=== PATIENT | male | born 1995 | race Caucasian/White ===

== ENCOUNTER 2018-02-05 02:14 | Emergency (ER) | payer SELFPAY | END 2018-02-05 04:58 | disposition home or self-care (01) | LOC: M ED 02:14 | DX: K29.70 Gastritis, unspecified, without bleeding (principal); F17.200 Nicotine dependence, unspecified, uncomplicated | CPT/HCPCS: 99282 ==

== ENCOUNTER → 2018-04-22 | Outpatient (CLI) | payer OTHER ==
[~2018-04-22] MED LIST: ZOFR4TAB14 PO; [UNRECOGNIZED DRUG - CODE] PO
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
== END ==
LOC: M RAD 16:05
PROVIDERS: ATTEND Physician Assistant
DX: M54.2 Cervicalgia (principal)

== ENCOUNTER 2018-05-31 03:33 | Emergency (ER) | payer OTHER ==
[~2018-05-31] VITALS: Ht 172.7 cm; Wt 75.0 kg
[2018-05-31 03:33] VITALS: BP 133/65
[2018-05-31 04:29] LABS: INFLUENZA A AMPLIFICATION NEGATIVE (NEGATIVE); INFLUENZA B AMPLIFICATION NEGATIVE (NEGATIVE)
[2018-05-31] MEDS ORDERED: AUGM500T34 PO (04:55)
[2018-05-31] MEDS ORDERED: AUGMENTIN 875 MG TAB PO ONE (05:00)
== END 2018-05-31 05:04 | disposition home or self-care (01) ==
LOC: M ED 03:33
DX: H66.92 Otitis media, unspecified, left ear (principal); J02.9 Acute pharyngitis, unspecified; F17.200 Nicotine dependence, unspecified, uncomplicated

== ENCOUNTER 2019-04-04 20:31 | Emergency (ER) | payer OTHER ==
[~2019-04-04] VITALS: Ht 172.7 cm; Wt 72.7 kg
[~2019-04-04 20:31] MED LIST changes: +AUGM500T34 PO
[2019-04-04 21:18] LABS: INFLUENZA A AMPLIFICATION NEGATIVE (NEGATIVE); INFLUENZA B AMPLIFICATION POSITIVE (NEGATIVE)
[2019-04-04] MEDS ORDERED: OSELTAMIVIR PHOSPHATE 75 MG CAP (TAMIFLU) PO ONE (21:45)
[2019-04-04] MEDS ORDERED: OSEL75CA PO (21:50)
[2019-04-04] MEDS ORDERED: ONDA4TAB6 PO (21:50)
[2019-04-04 22:06] VITALS: BP 131/75
[2019-04-04] MEDS ORDERED: ACETAMINOPHEN TAB 650MG DOSE (2X325MG) PO ONE (22:30)
== END 2019-04-04 22:26 | disposition home or self-care (01) ==
LOC: M ED 20:31
DX: J10.1 Influenza due to other identified influenza virus with other respiratory manifestations (principal)

== ENCOUNTER 2019-04-08 20:11 | Emergency (ER) | payer OTHER ==
[~2019-04-08] VITALS: Ht 172.7 cm; Wt 71.8 kg
[~2019-04-08 20:11] MED LIST changes: +ONDA4TAB6 PO; +OSEL75CA PO
[2019-04-08] MEDS ORDERED: ACET-683 PO (20:32)
[2019-04-08] MEDS ORDERED: NS 1,000 ML IV ONE (20:45)
[2019-04-08] MEDS ORDERED: IBUPROFEN 800 MG TAB PO ONE (20:45)
[2019-04-08] MEDS ORDERED: ACETAMINOPHEN 500 MG TAB PO ONE (20:45)
[2019-04-08] MEDS ORDERED: PRED20TA PO (21:22)
[2019-04-08] MEDS ORDERED: MORPHINE 4 MG/ML 1ML VIAL/SYRINGE (J2270) IV ONE (21:30)
[2019-04-08] MEDS ORDERED: dexameTHASONE 20 MG/5 ML VIAL (J1100) IV ONE (21:30)
[2019-04-08] MEDS ORDERED: DEXTROMETHORPHAN 60MG/10ML SUSP 90ML BTL(DELSYM) PO PRN (21:30)
[2019-04-08] MEDS ORDERED: DEXTROMETHORPHAN 60MG/10ML SUSP 90ML BTL(DELSYM) PO ONE ×2 (21:30)
[2019-04-08 22:01] VITALS: BP 115/55
--- NOTE | 2019-04-09 10:49 | REP ---
CHEST, TWO VIEWS: There is no evidence of acute infiltrate. No pleural effusion is seen. The heart is normal in size. The mediastinal silhouette is unremarkable. The visualized osseous structures are intact. IMPRESSION: No acute pulmonary disease. Electronically Signed by Roberto Lira MD 04/09/2019 03:53 P
== END 2019-04-08 22:07 | disposition home or self-care (01) ==
LOC: M ED 20:11 → EDBD 20:11 → M ED 22:07
DX: J10.1 Influenza due to other identified influenza virus with other respiratory manifestations (principal); J40 Bronchitis, not specified as acute or chronic; F17.210 Nicotine dependence, cigarettes, uncomplicated
CPT/HCPCS: 71046; 96361; 96374; 96375; 99284; J1100; J2270

== ENCOUNTER 2019-10-04 23:12 | Emergency (ER) | payer OTHER ==
[~2019-10-04] VITALS: Ht 175.3 cm; Wt 80.0 kg
[~2019-10-04 23:12] MED LIST changes: +ACET-683 PO; +PRED20TA PO
[2019-10-04 23:34] VITALS: BP 121/83
[2019-10-05 00:33] LABS: HEMATOCRIT 48.6 % (42.0-52.0); HEMOGLOBIN 16.7 g/dl (13.5-17.5); MEAN CORPUSCULAR HEMOGLOBIN 30.5 pg (27.0-33.0); MEAN CORPUSCULAR HGB CONC 34.4 g/dl (32.0-36.5); MEAN CORPUSCULAR VOLUME 88.8 fl (80.0-96.0); RED BLOOD COUNT 5.47 10^6/uL (4.30-6.10); WHITE BLOOD COUNT 5.4 10^3/uL (4.0-10.0)
[2019-10-05 00:36] LABS: ACETAMINOPHEN LEVEL < 2.0 UG/ML (10.0-30.0); ALBUMIN 4.4 GM/DL (3.2-5.2); ALT/SGPT 22 U/L (12-78); BILIRUBIN,DIRECT 0.1 MG/DL (0.0-0.2); BILIRUBIN,TOTAL 0.3 MG/DL (0.2-1.0); BLOOD UREA NITROGEN 15 MG/DL (7-18); CALCIUM LEVEL 9.1 MG/DL (8.5-10.1); CARBON DIOXIDE LEVEL 27 MEQ/L (21-32); CHLORIDE LEVEL 105 MEQ/L (98-107); ETHYL ALCOHOL (ETHANOL) 0.077 % (0.000-0.010); GLOMERULAR FILTRATION RATE > 60.0 (>60); GLUCOSE, FASTING 88 MG/DL (70-100); POTASSIUM SERUM 3.6 MEQ/L (3.5-5.1); SALICYLATE LEVEL 3.7 MG/DL (5.0-30.0); SODIUM LEVEL 138 MEQ/L (136-145); TOTAL PROTEIN 7.8 GM/DL (6.4-8.2)
[2019-10-05 00:37] LABS: AMPHETAMINES LEVEL URINE NEGATIVE (NEGATIVE); BARBITURATES URINE NEGATIVE (NEGATIVE); BENZODIAZEPINES URINE NEGATIVE (NEGATIVE); CANNABINOIDS URINE NEGATIVE (NEGATIVE); COCAINE METABOLITE URINE NEGATIVE (NEGATIVE); METHADONE URINE NEGATIVE (NEGATIVE); OPIATES URINE NEGATIVE (NEGATIVE); PHENCYCLIDINE URINE NEGATIVE (NEGATIVE)
[2019-10-05 01:27] LABS: PLATELET COUNT, AUTOMATED 88 10^3/uL (150-450)
== END 2019-10-05 02:06 | disposition home or self-care (01) ==
LOC: M ED 23:12
DX: F43.0 Acute stress reaction (principal); F17.200 Nicotine dependence, unspecified, uncomplicated; F12.90 Cannabis use, unspecified, uncomplicated
CPT/HCPCS: 36415; 80048; 80076; 80307; 84443; 85027; 85049; 85055; 99284; G0480

== ENCOUNTER 2021-01-25 23:57 | Emergency (ER) | payer MEDICAID ==
[~2021-01-25] VITALS: Ht 175.3 cm; Wt 76.9 kg
[~2021-01-25 23:57] MED LIST changes: +DISU250T PO; +FLUO20CA22 PO; +NICO21PAT TD
[2021-01-25 23:59] VITALS: BP 137/72
--- OUTSIDE RECORDS SUMMARY | 2021-01-26 00:04 | CCD ---
Author Author [facility] Organization [facility] Address Unknown Phone Unavailable Care Team Providers Care Business Performance Specialist Name Role Phone LANCASTER, RAI PIYUSH RPA-C Unavailable Unavailable LANCASTER, RAI PIYUSH RPA-C Unavailable Unavailable LANCASTER, RAI PIYUSH RPA-C Unavailable Unavailable LANCASTER, RAI PIYUSH RPA-C Unavailable Unavailable LANCASTER, RAI PIYUSH RPA-C Unavailable Unavailable LANCASTER, RAI PIYUSH RPA-C Unavailable Unavailable LANCASTER, RAI PIYUSH RPA-C Unavailable Unavailable LANCASTER, RAI PIYUSH RPA-C Unavailable Unavailable LANCASTER, RAI PIYUSH RPA-C Unavailable Unavailable LANCASTER, RAI PIYUSH RPA-C Unavailable Unavailable LANCASTER, RAI PIYUSH RPA-C Unavailable Unavailable LANCASTER, RAI PIYUSH RPA-C Unavailable Unavailable LANCASTER, RAI PIYUSH RPA-C Unavailable Unavailable LANCASTER, RAI PIYUSH RPA-C Unavailable Unavailable LANCASTER, RAI PIYUSH RPA-C Unavailable Unavailable LANCASTER, RAI PIYUSH RPA-C Unavailable Unavailable LANCASTER, RAI PIYUSH RPA-C Unavailable Unavailable LANCASTER, RAI PIYUSH RPA-C Unavailable Unavailable LANCASTER, RAI PIYUSH RPA-C Unavailable Unavailable LANCASTER, RAI PIYUSH RPA-C Unavailable Unavailable LANCASTER, RAI PIYUSH RPA-C Unavailable Unavailable LANCASTER, RAI PIYUSH RPA-C Unavailable Unavailable LANCASTER, RAI PIYUSH RPA-C Unavailable Unavailable LANCASTER, RAI PIYUSH RPA-C Unavailable Unavailable LANCASTER, RAI PIYUSH RPA-C Unavailable Unavailable LANCASTER, RAI PIYUSH RPA-C Unavailable Unavailable LANCASTER, RAI PIYUSH RPA-C Unavailable Unavailable LANCASTER, RAI PIYUSH RPA-C Unavailable Unavailable LANCASTER, RAI PIYUSH RPA-C Unavailable Unavailable LANCASTER, RAI PIYUSH RPA-C Unavailable Unavailable LANCASTER, RAI PIYUSH RPA-C Unavailable Unavailable LANCASTER, RAI PIYUSH RPA-C Unavailable Unavailable LANCASTER, RAI PIYUSH RPA-C Unavailable Unavailable LANCASTER, RAI PIYUSH RPA-C Unavailable Unavailable LANCASTER, RAI PIYUSH RPA-C Unavailable Unavailable LANCASTER, RAI PIYUSH RPA-C Unavailable Unavailable LANCASTER, RAI PIYUSH RPA-C Unavailable Unavailable LANCASTER, RAI PIYUSH RPA-C Unavailable Unavailable LANCASTER, RAI PIYUSH RPA-C Unavailable Unavailable LANCASTER, RAI PIYUSH RPA-C Unavailable Unavailable LANCASTER, RAI PIYUSH RPA-C Unavailable Unavailable LANCASTER, RAI PIYUSH RPA-C Unavailable Unavailable LANCASTER, RAI PIYUSH RPA-C Unavailable Unavailable Caputo, Kristen Delgadillo HIDE CURER Unavailable Unavailable Caputo, R Elie HIDE CURER Unavailable Unavailable Caputo, R Elie HIDE CURER Unavailable Unavailable Gómez Cornellna Unavailable Re-disclosure Warning The records that you are about to access may contain information from federally-assisted alcohol or drug abuse programs. If such information is present, then the following federally mandated warning applies: This information has been disclosed to you from records protected by federal confidentiality rules (42 CFR part 2). The federal rules prohibit you from making any further disclosure of this information unless further disclosure is expressly permitted by the written consent of the person to whom it pertains or as otherwise permitted by 42 CFR part 2. A general authorization for the release of medical or other information is NOT sufficient for this purpose. The Federal rules restrict any use of the information to criminally investigate or prosecute any alcohol or drug abuse patient.The records that you are about to access may contain highly sensitive health information, the redisclosure of which is protected by Article 27-F of the [facility] Public Health law. If you continue you may have access to information: Regarding HIV / AIDS; Provided by facilities licensed or operated by the [facility] Office of Mental Health; or Provided by the [facility] Office for People With Developmental Disabilities. If such information is present, then the following [facility] mandated warning applies: This information has been disclosed to you from confidential records which are protected by state law. State law prohibits you from making any further disclosure of this information without the specific written consent of the person to whom it pertains, or as otherwise permitted by law. Any unauthorized further disclosure in violation of state law may result in a fine or mcfp sentence or both. A general authorization for the release of medical or other information is NOT sufficient authorization for further disc losure. Encounters Encounter Providers Location Date Indications Data Source(s ) Extended Individual Psychotherapy - 45 min Attender: Arvind Cornell [facility] 09/27/2020 07:00:00 AM EDT - 09/27/2020 07:00:00 AM EDT [facility] ([facility]) Attender: Lindsey Cornell 09/27/2020 12:00:00 AM E DT [facility] ([facility]) Long Term - Case Management Attender: Lindsey Cornell [facility] J ail 09/21/2020 12:15:00 PM EDT - 09/21/2020 12:15:00 PM EDT [facility] ([facility]) Attender: Lindsey Cornell 09/21/2020 12:00:00 AM E DT [facility] ([facility]) Attender: Lindsey Cornell 09/06/2020 12:00:00 AM E DT [facility] ([facility]) Brief Individual Psychotherapy - 30 min Attender: Lindsey maciel [facility] 09/05/2020 02:00:00 AM EDT - 09/05/2020 02:00:00 AM EDT [facility] ([facility]) [facility] 08:00:00 AM EDT - 08/29/2020 08:00:00 AM EDT [facility] ([facility]) Attender: Elie Caputo NP 08/29/2020 12:00:00 AM EDT [facility] ([facility]) Attender: Lindsey Cornell 08/21/2020 12:00:00 AM E DT [facility] ([facility]) Extended Individual Psychotherapy - 45 min Attender: Arvind reynaga [facility] 08/20/2020 01:00:00 AM EDT - 08/20/2020 01:00:00 AM EDT [facility] ([facility]) Outpatient Attender: Elie Caputo NP [facility] 07/11/2020 09:00:00 AM EDT - 07/11/2020 09:00:00 AM EDT [facility] ([facility]) Attender: Elie Caputo NP 07/11/2020 12:00:00 AM EDT [facility] ([facility]) Extended Individual Psychotherapy - 45 min Attender: Arvind reynaga [facility] 06/08/2020 09:00:00 AM EST - 06/08/2020 09:00:00 AM EST [facility] ([facility]) Attender: Lindsey Cornell 06/08/2020 12:00:[address] [facility] ([facility]) Telemed Diagnostic Eval Attender: Elie Caputo NP [facility] 05/15/2020 08:00:00 AM EST - 05/15/2020 08:00:00 AM EST [facility] ([facility]) Attender: Elie Caputo NP 05/15/2020 12:00:00 AM EST [facility] ([facility]) Extended Individual Psychotherapy - 45 min Attender: Arvind reynaga [facility] 05/11/2020 12:15:00 PM EST - 05/11/2020 12:15:00 PM EST [facility] ([facility]) Attender: Lindsey Cornell 05/11/2020 12:00:[address] [facility] ([facility]) Attender: Lindsey Cornell 04/26/2020 12:00:[address] [facility]) Brief Individual Psychotherapy - 30 min Attender: Lindsey Loaiza [facility] 04[facility]25[facility]2020 02:00:00 AM EST - 04/25/2020 02:00:00 AM EST [facility] ([facility]) Crisis Intervention - Brief Attender: Lindsey Cornell [facility] 04/06/2020 02:00:00 AM EST - 04/06/2020 02:00:00 AM EST [facility] ([facility]) Attender: Lindsey Cornell 04/06/2020 12:00:[address] [facility]) Brief Individual Psychotherapy - 30 min Attender: Lindsey maciel [facility] 04/02/2020 12:15:00 PM EST - 04/02/2020 12:15:00 PM EST [facility] ([facility]) Attender: Lindsey Cornell 04/02/2020 12:00:[address] [facility] ([facility]) Extended Individual Psychotherapy - 45 min Attender: Arvind Cornell [facility] 03/21/2020 09:15:00 AM EST - 03/21/2020 09:15:00 AM EST [facility] ([facility]) Attender: Lindsey Cornell 03/21/2020 12:00:[address] [facility]) Brief Individual Psychotherapy - 30 min Attender: Lindsey maciel [facility] 03/14/2020 02:00:00 AM EST - 03/14/2020 02:00:00 AM EST [facility] ([facility]) Attender: Lindsey Cornell 03/14/2020 12:00:[address] [facility] ([facility]) Crisis Intervention - Brief [facility]: [facility] 03/07/2020 08:30:00 AM EST - 03/07/2020 08:30:00 AM EST [facility] ([facility]) Attender: Lindsey Cornell 03/07/2020 12:00:[address] [facility]) Outpatient Attender: PIYUSH BLANCO [facility] 01/15/2020 03:23:01 PM EDT [facility] Outpatient Attender: PIYUSH BLANCO [facility] 12/30/2019 02:49:59 PM EDT [facility] Functional Status Medications Medication Brand Name Start Date Product Form Dose Route Admi nistrative Instructions Pharmacy Instructions Status Indications Reaction Description Data Source(s) Clindamycin 300 MG Oral Capsule Clindamycin HCL 09/04/2020 12:00:00 A M EDT ORAL active [facility] ([facility]) Ibuprofen 200 MG Oral Tablet Ibuprofen 200 06/18/2020 12:00:00 AM EDT ORAL completed [facility] ([facility]) Hydroxyzine Hydrochloride 50 MG Oral Tablet Hydroxyzine HCL 06/13/2020 12:00:00 AM EDT ORAL active [facility] ([facility]) Hydroxyzine Hydrochloride 50 MG Oral Tablet hydroxyzine HCl 06/13/2020 12:00:00 AM EDT 50 mg by mouth completed <td ID="MedicationRxNorm_3">203055</td><td ID="MedicationMedication_3">hydroxyzine HCl</td><td ID="MedicationRoute_3">by mouth</td><td ID="MedicationRouteConcept_3">V05908</td><td ID="MedicationStartDate_3">06/13/2020</td><td ID="MedicationStopDate_3">12/10/2020</td><td ID="MedicationDosageFrequency_3">at bedtime</td><td ID="MedicationDuration_3">30</td><td ID="MedicationFormulaStrength_3">50 mg</td><td ID="MedicationDosageForm_3">tablet</td><td ID="MedicationDosageFormCode_3"></td><td ID="MedicationDosageDescription_3"></td><td ID="MedicationMedicationId_3">[id number]</td><td ID="MedicationAccount_3">[id number]</td><td ID="MedicationNpid_3">[id number]</td><td ID="MedicationAuthorFirstName_3">Elie</td><td ID="MedicationAuthorLastName_3">Caputo</td><td ID="MedicationTaxonomyCode_3">[id number]</td><td ID="MedicationTaxonomyDesc_3">Nurse Practitioner</td><td ID="MedicationPhoneNumber_3">[phone]</td> [facility] ([facility]) Hydroxyzine Hydrochloride 50 MG Oral Tablet hydroxyzine HCl 06/13/2020 12:00:00 AM EDT 50 mg by mouth completed <td ID="MedicationRxNorm_2">937819</td><td ID="MedicationMedication_2">hydroxyzine HCl</td><td ID="MedicationRoute_2">by mouth</td><td ID="MedicationRouteConcept_2">Y93058</td><td ID="MedicationStartDate_2">06/13/2020</td><td ID="MedicationStopDate_2">12/10/2020</td><td ID="MedicationDosageFrequency_2">at bedtime</td><td ID="MedicationDuration_2">30</td><td ID="MedicationFormulaStrength_2">50 mg</td><td ID="MedicationDosageForm_2">tablet</td><td ID="MedicationDosageFormCode_2"></td><td ID="MedicationDosageDescription_2"></td><td ID="MedicationMedicationId_2">[id number]</td><td ID="MedicationAccount_2">[id number]</td><td ID="MedicationNpid_2">[id number]</td><td ID="MedicationAuthorFirstName_2">Elie</td><td ID="MedicationAuthorLastName_2">Caputo</td><td ID="MedicationTaxonomyCode_2">[id number]</td><td ID="MedicationTaxonomyDesc_2">Nurse Practitioner</td><td ID="MedicationPhoneNumber_2">[phone]</td> [facility] ([facility]) Amoxicillin 875 MG Oral Tablet Amoxicillin 06/12/2020 12:00:00 AM EDT ORAL completed [facility] ([facility]) Fluoxetine 40 MG Oral Capsule Fluoxetine HCL 05/15/2020 12:00:[address] ORAL completed [facility] ([facility]) olanzapine 5 MG Oral Tablet Olanzapine 05/15/2020 12:00:00 AM EST ORAL active [facility] ([facility]) Fluoxetine 40 MG Oral Capsule fluoxetine 05/15/2020 12:00:00 AM EST 40 mg by mouth completed <td ID="Medica tionRxNorm_1">886683</td><td ID="MedicationMedication_1">fluoxetine</td><td ID="MedicationRoute_1">by mouth</td><td ID="MedicationRouteConcept_1">W30259</td><td ID="MedicationStartDate_1">05/15/2020</td><td ID="MedicationStopDate_1">11/11/2020</td><td ID="MedicationDosageFrequency_1">every morning</td><td ID="MedicationDuration_1">30</td><td ID="MedicationFormulaStrength_1">40 mg</td><td ID="MedicationDosageForm_1">capsule</td><td ID="MedicationDosageFormCode_1"></td><td ID="MedicationDosageDescription_1"> </td><td ID="MedicationMedicationId_1">[id number]</td><td ID="MedicationAccount_1">[id number]</td><td ID="MedicationNpid_1">[id number]</td><td ID="MedicationAuthorFirstName_1">Elie</td><td ID="MedicationAuthorLastName_1">Caputo</td><td ID="MedicationTaxonomyCode_1">[id number]</td><td ID="MedicationTaxonomyDesc_1">Nurse Practitioner</td><td ID="MedicationPhoneNumber_1">[phone]</td> [facility] ([facility]) olanzapine 5 MG Oral Tablet olanzapine 05/15/2020 12:00:00 AM EST 5 mg by mouth completed <td ID="Medica tionRxNorm_2">024973</td><td ID="MedicationMedication_2">olanzapine</td><td ID="MedicationRoute_2">by mouth</td><td ID="MedicationRouteConcept_2">G54754</td><td ID="MedicationStartDate_2">05/15/2020</td><td ID="MedicationStopDate_2">11/11/2020</td><td ID="MedicationDosageFrequency_2">at bedtime</td><td ID="MedicationDuration_2">30</td><td ID="MedicationFormulaStrength_2">5 mg</td><td ID="MedicationDosageForm_2">tablet</td><td ID="MedicationDosageFormCode_2"></td><td ID="MedicationDosageDescription_2"></td><td ID="MedicationMedicationId_2">[id number]</td><td ID="MedicationAccount_2">[id number]</td><td ID="MedicationNpid_2">[id number]</td><td ID="MedicationAuthorFirstName_2">Elie</td><td ID="MedicationAuthorLastName_2">Caputo</td><td ID="MedicationTaxonomyCode_2">[id number]</td><td ID="MedicationTaxonomyDesc_2">Nurse Practitioner</td><td ID="MedicationPhoneNumber_2">[phone]</td> [facility] ([facility]) olanzapine 5 MG Oral Tablet olanzapine 05/15/2020 12:00:00 AM EST 5 mg by mouth completed <td ID="Medica tionRxNorm_1">433658</td><td ID="MedicationMedication_1">olanzapine</td><td ID="MedicationRoute_1">by mouth</td><td ID="MedicationRouteConcept_1">M77427</td><td ID="MedicationStartDate_1">05/15/2020</td><td ID="MedicationStopDate_1">11/11/2020</td><td ID="MedicationDosageFrequency_1">at bedtime</td><td ID="MedicationDuration_1">30</td><td ID="MedicationFormulaStrength_1">5 mg</td><td ID="MedicationDosageForm_1">tablet</td><td ID="MedicationDosageFormCode_1"></td><td ID="MedicationDosageDescription_1"></td><td ID="MedicationMedicationId_1">[id number]</td><td ID="MedicationAccount_1">[id number]</td><td ID="MedicationNpid_1">[id number]</td><td ID="MedicationAuthorFirstName_1">Elie</td><td ID="MedicationAuthorLastName_1">Caputo</td><td ID="MedicationTaxonomyCode_1">[id number]</td><td ID="MedicationTaxonomyDesc_1">Nurse Practitioner</td><td ID="MedicationPhoneNumber_1">[phone]</td> [facility] ([facility]) Ibuprofen 200 MG Oral Capsule Ibuprofen 05/04/2020 12:00:00 AM EST completed [facility] ([facility]) Sodium Chloride 0.111 MEQ/ML Nasal Solution Nasal Moist 04/20/2020 12:00:00 AM EST completed [facility] ([facility]) Fluoxetine 20 MG Oral Capsule Fluoxetine HCL 03/09/2020 12:00:[address] ORAL active [facility] ([facility]) 250 mg 12/31/2019 12:00:00 AM EDT tablet 30 TAKE ONE TABLET BY MOUTH EVERY DAY TAKE ONE TABLET BY MOUTH EVERY DAY SOLD: 01/01/2020 [facility] 20 mg 12/16/2019 12:00:00 AM EDT capsule 30 TAKE ONE CAPSULE BY MOUTH EVERY DAY FOR MOOD TAKE ONE CAPSULE BY MOUTH EVERY DAY FOR MOOD SOLD: 12/30/2019 [facility] 250 mg 12/06/2019 12:00:00 AM EDT tablet 30 TAKE ONE TABLET BY MOUTH EVERY DAY FOR ALCOHOL TAKE ONE TABLET BY MOUTH EVERY DAY FOR ALCOHOL SOLD: 020 [facility] 20 mg 12/06/2019 12:00:00 AM EDT capsule 7 TAKE ONE CAPSULE BY MOUTH EVERY DAY FOR MOOD TAKE ONE CAPSULE BY MOUTH EVERY DAY FOR MOOD SOLD: 12/06/2019 [facility] Insurance Providers Payer name Policy type / Coverage type Policy ID Covered democrat ID Covered democrat's relationship to mcdaniel Policy Mcdaniel Plan Information [employer] [id number] SP [id number] [facility] COMM[facility]ITY [facility]AN [facility] [id number] SP [id number] EDPR [id number] SP [id number] [facility] COMMUNITY PLAN [facility] [id number] SP [id number] [employer] [id number] SP [id number] [id number] SP [id number] [facility] COMMUNITY [facility]AN [facility] [id number] SP [id number] [facility] O [id number] S [id number] [facility] [id number] S [id number] SELF PAY ONLY [id number] SP [id number] Problems, Conditions, and Diagnoses Code Display Name Description Problem Type Effective Dates Data Source(s) F10.20 Alcohol dependence, uncomplicated Alcohol Use Disorder , Severe Condition 09/27/2020 12:00:00 AM EDT [facility] ([facility]) F43.9 Reaction to severe stress, unspecified U nspecified Trauma- and Stressor- Related Disorder Condition 09/27/2020 12:00:00 AM EDT [facility] ([facility]) F10.20 Alcohol dependence, uncomplicated Alcohol Use Di sorder, Moderate Condition 09/21/2020 12:00:00 AM EDT [facility] ([facility]) F43.9 Reaction to severe stress, unspecified U nspecified Trauma- and Stressor- Related Disorder Condition 09/21/2020 12:00:00 AM EDT [facility] ([facility]) F43.23 Adjustment disorder with mixed anxiety a nd depressed mood Adjustment Disorder, With mixed anxiety and depressed mood Condition 2020 12:00:00 AM EDT [facility] ([facility]) F31.81 Bipolar II disorder Bipolar II Disorder Condition 0 09/21/2020 12:00:00 AM EDT [facility] ([facility]) F32.9 Major depressive disorder, single episod e, unspecified Unspecified depressive Disorder Condition 05/11/2020 12:00:00 AM EST [facility] ([facility]) V15.59 Personal history of self-harm Personal history of self -harm 12/30/2019 02:48:00 PM EDT [facility] [id number] Alcohol abuse, uncomplicated Alcohol abuse, uncomplica henri 12/30/2019 02:48:00 PM EDT [facility] 300.4 Mixed anxiety and depressive disorder Mi xed anxiety and depressive disorder 12/30/2019 02:48:00 PM EDT [facility] Surgeries/Procedures Procedure Description Date Indications Data Source(s) Extended Individual Psychotherapy - 45 min 09/27/2020 12:00:00 AM EDT - 09/27/2020 12:00:00 AM EDT [facility] ([facility]) Extended Individual Psychotherapy - 45 min 12:00:00 AM EDT [facility] ([facility]) Long Term - Case Management 09/21/2020 12:00: 00 AM EDT - 09/21/2020 12:00:00 AM EDT [facility] ([facility]) Long Term - Case Management 09/21/2020 12:00:00 AM EDT [facility] ([facility]) Brief Individual Psychotherapy - 30 min 09/06/2020 12:00:00 AM EDT - 09/06/2020 12:00:00 AM EDT [facility] ([facility]) Brief Individual Psychotherapy - 30 min 09/05/2020 12: 00:00 AM EDT [facility] ([facility]) MHC Telemed E/M Lvl 3--Est pt 08/29/2020 12:00:00 AM EDT - 08/29/2020 12:00:00 AM EDT [facility] ([facility]) MHC Telemed E/M Lvl 3--Est pt 08/29/2020 12:00:00 AM E DT [facility] ([facility]) Extended Individual Psychotherapy - 45 min 08/21/2020 12:00:00 AM EDT - 08/21/2020 12:00:00 AM EDT [facility] ([facility]) Extended Individual Psychotherapy - 45 min 12:00:00 AM EDT [facility] ([facility]) MHC Telemed E/M Lvl 2--Est pt 07/11/2020 12:00:00 AM EDT - 07/11/2020 12:00:00 AM EDT [facility] ([facility]) MHC Telemed E/M Lvl 2--Est pt 07/11/2020 12:00:00 AM E DT [facility] ([facility]) Extended Individual Psychotherapy - 45 min 06/08/2020 12:00:00 AM EST - 06/08/2020 12:00:00 AM EST [facility] ([facility]) Extended Individual Psychotherapy - 45 min 12:00:00 AM EST [facility] ([facility]) Telemed Diagnostic Eval 05/15/2020 12:00 :00 AM EST - 05/15/2020 12:00:00 AM EST [facility] ([facility]) Telemed Diagnostic Eval 05/15/2020 12:00:00 AM EST [facility] ([facility]) Extended Individual Psychotherapy - 45 min 05/11/2020 12:00:00 AM EST - 05/11/2020 12:00:00 AM EST [facility] ([facility]) Extended Individual Psychotherapy - 45 min 12:00:00 AM EST [facility] ([facility]) Brief Individual Psychotherapy - 30 min 04/26/2020 12:00:00 AM EST - 04/26/2020 12:00:00 AM EST [facility] ([facility]) Brief Individual Psychotherapy - 30 min 04/25/2020 12: 00:00 AM EST [facility] ([facility]) Crisis intervention service, per 15 minutes 04/06/2020 12:00:00 AM EST - 04/06/2020 12:00:00 AM EST [facility] ([facility]) Crisis intervention service, per 15 minutes 04/06/2020 12:00:00 AM EST [facility] ([facility]) Brief Individual Psychotherapy - 30 min 04/02/2020 12:00:00 AM EST - 04/02/2020 12:00:00 AM EST [facility] ([facility]) Brief Individual Psychotherapy - 30 min 04/02/2020 12: 00:00 AM EST [facility] ([facility]) Extended Individual Psychotherapy - 45 min 03/21/2020 12:00:00 AM EST - 03/21/2020 12:00:00 AM EST [facility] ([facility]) Extended Individual Psychotherapy - 45 min 0 12:00:00 AM EST [facility] ([facility]) Brief Individual Psychotherapy - 30 min 03/14/2020 12:00:00 AM EST - 03/14/2020 12:00:00 AM EST [facility] ([facility]) Brief Individual Psychotherapy - 30 min 03/14/2020 12: 00:00 AM EST [facility] ([facility]) Crisis intervention service, per 15 minutes 03/07/2020 12:00:00 AM EST - 03/07/2020 12:00:00 AM EST [facility] ([facility]) Crisis intervention service, per 15 minutes 03/07/2020 12:00:00 AM EST [facility] ([facility]) Results ID Date Data Source [id number] 12/30/2019 02:15:52 PM EDT [facility] Measurements & CalculationsHeight: 69 inches (5 ft. 9 in.) 175.26 cm Weight: 168 pounds 76.36 kg Body Mass Index (BMI): 24.90BMI Interpretation: Healthy WeightBody Surface Area (BSA): 1.92Weight Management Education Done (Nutrition/Physical Activity)Vital SignsTemperature: 97.3F 36.28C tympanic Pulse Rate: 81 beats/minuteRespiratory Rate: 18 respirations/minuteBlood Pressure: 135/73 left arm sitting automaticO2 Saturation: 98% Vital Signs performed by: Tami Haas LPN, December 30, 2019 2:17 PMVital Signs performed by: Piyush FERNÁNDEZ, December 30, 2019 2:28 PMInitial Intake Information From: patientRoom #: 1Infectious Disease / Travel ScreeningRecent travel for you or any close contacts? NoHave you had any close contact with anyone diagnosed with or under investigation for COVID-19 (coronavirus)? NoFever? NoRespiratory symptoms: cough, cold, congestion, shortness of breath, difficulty breathing? NoLoss of smell? NoLoss of taste? NoSmoking, Tobacco, Vaping or Smoke Exposure StatusSmoke Status: current every day smokerTobacco Use: YesAdv to Quit: YesDo you vape? NoPassive Smoke Exposure: NoHealthcare HistorySince your last office visit...Have you been admitted to the hospital? NoHave you been to an emergency room (ER) or urgent care clinic? NoHave you seen another healthcare provider? NoHave you seen a dentist? NoIntake performed by: Tami Haas LPN, December 30, 2019 2:17 PMRate Your HealthIn general, would you say your health is? GoodPain AssessmentAre you currently having any pain which... You would like your provider to address? No Affects your activity level? NoDepression Screening - PHQ-2Over the last two weeks, have you... Had little interest or pleasure in doing things? Several days Been feeling down, depressed, or hopeless? Several days PHQ-2 Score: 2Anxiety Screening - GRACIE-2Over the last two weeks, have you been... Feeling nervous, anxious, or on edge? Several days Unable to stop or control worrying? Several days GRACIE-2 Score: 2Food InsecurityWithin the past year...Did you worry whether your food would run out before you got money to buy more? Never trueWas there a time when the food you bought didn't last and you didn't have money to get more? Never trueGeneralized Anxiety Disorder 7-Item Screening (GRACIE-7)Answer Guide:0 = Not at all1 = Several days2 = Over half the days3 = Nearly every dayOver the last 2 weeks, how often have you been bothered by the following problems?Feeling nervous, anxious, or on edge: 1Not being able to stop or control worryinWorrying too much about different things: 1Trouble relaxinBeing so restless that it's hard to sit still: 1Becoming easily annoyed or irritable: 1Feeling afraid as if something awful might happen: 1Answer Guide:0 = Not difficult at all1 = Somewhat difficult2 = Very difficult3 = Extremely difficultHow difficult have these made it for you to do your work, take care of things at home, or get along with other people? 1GAD-7 Screening Results GRACIE-2 Score: 2GAD-7 Score: 7Functional Impairment: Somewhat difficultRecommendation: Mild anxietyPHQ-9 1. Over the last 2 weeks, patient reports the following frequency of symptoms: a. Little interest or pleasure in doing things -Several days b. Feeling down, depressed, or hopeless -Several days c. Trouble falling asleep, staying asleep, or sleeping too much -Several days d. Feeling tired or having little energy - Several days e. Poor appetite or overeating -Several days f. Feeling bad about yourself, feeling that you are a failure, or feeling that you have let yourself or your family down -Several days g. Trouble concentrating on things such as reading the newspaper or watching television -Several days h. Moving or speaking so slowly that other people could have noticed. Or being so fidgety or restless that you have been moving around a lot more than usual -Several days i. Thinking that you would be better off or that you want to hurt yourself in some way -Not at all2. If you checked off any problems, how difficult have these problems made it for you to do your work, take care of things at home, or get along with other people? - Somewhat DifficultToday's PHQ-9 Results Score: 8 Severity: Mild Diagnosis Recommendation: No recommendation Functional Impairment: Somewhat DifficultToday's Follow-Up Action Depression follow-up done. Follow-Up Action: Continue To Take Medications as PrescribedScreening, Brief Intervention, & Referral to Treatment (SBIRT)Pre-Screening Questions How many times have you have 5 or more drinks in a day? 0How many times have you used an illegal drug or used a prescription medication for a non-medical reason? 0Performed by: Tami Haas LPN, December 30, 2019 2:18 PMPatient History Medical History:No known medical historySurgical History:No known surgical historyFamily History:No known family historySocial/Personal History: Advised to Quit/Tobacco Education: YesChief Complainthospital d/cHistory of Present Illness (HPI)Pt is a 24 y/o male, presents for new patient [facility] hospital discharge.Pt had a very stressful night of communication with his ex ( with his ex x 2-3 months and limited interaction with his son). Has court date for paternity case on 01/10/2020. Pt reports cutting himself on his left arm while intoxicated, denies suicidal attempt but describes it as a call for attention. Was admitted to [facility] x 3 days, was started on Prozac and Antabuse. Pt states he is already established with [facility] previously for mental health counseling and alcohol abuse, has been with them for nearly 1 year. Hx of rehab for alcohol in . Next [facility] appt is Thursday at 8:30 with his counseling. States he ran out of Prozac 1 week ago, reports it was "very much" helpful while he was taking it. Has 4-5 pills left of Naltrexone. [place] P[place]. Had a Tdap while in the ER, had asmita to the laceration and have them removed by [facility] 7-10 days after the placement. HPI performed by: Piyush FERNÁNDEZ, December 30, 2019 2:34 PMProblem ReviewProblem List was reviewed and/or updated during this visit.Medication Reconciliation & ReviewMedication List was reviewed and/or updated during this visit, including review of any [id number] medications, herbal therapies, and/or supplements.Allergy Re viewAllergy List was reviewed and/or updated during this visit. Patient has no known allergies.Adult Preventive CareScreening Tobacco Screening: Smoking Status: current every day smoker (12/30/2019) Tobacco Use: Currently (12/30/2019) Advised to Quit: Yes (12/30/2019)Labs/Meds/Other Counseling- Nutrition and Physical Activity:BMI Interpretation: Healthy Weight (12/30/2019) Counseling: Done (12/30/2019) Physical Activity: Done (12/30/2019)Review of Systems General: Denies loss of appetite, chills, dizziness, fatigue, fever, headache, feeling ill. Cardiovascular: Denies chest pain, palpitations, feeling faint, peripheral edema, elevated blood pressure. Respiratory: Denies cough, difficulty breathing, shortness of breath, wheezing. Gastrointestinal: Denies nausea, vomiting, diarrhea, pain or discomfort. Neurologic: Denies weakness, numbness/tingling, seizures, feeling faint. Psychiatric: Complains of see HPI, depression, anxiety, feeling stressed. Denies suicidal ideation. Physical ExamGeneral Appearance: well nourished, well hydrated, no acute distressEyes, External: conjunctivae and lids normal, EOMIRespiratory, Auscultation: clear to auscultation bilaterally; no rales, rhonchi, or wheezesCardiovascular, Auscultation: S1, S2 audible; no murmur, rub, or gallop; RRRPeripheral Circulation: no clubbing, cyanosis, edema, or varicositiesAbdomen: soft, non- tender, no masses, bowel sounds normalGait & Station: normalSkin, Inspection: healed self harm on wristOrientation: oriented to time, place, and personMood & Affect: slightly flat affect and mildly anxious appearingJudgment & Insight: intactRate Your HealthIn general, would you say your health is? GoodAssessment & Plan Problems:Added: Mixed anxiety and depressive disorder (ICD-300.4) (ICD10- F41.8) Assessment: Instructions: Continue current Prozac and Antabuse daily. Continue with your counselor at [facility], recommend you establish with a prescriber with [facility] as well. ER for suicidal thoughts or thoughts of self harm.Personal history of self-harm (ICD-V15.59) (DSL56-P28.5) Assessment: Instructions: As above.Alcohol abuse, uncomplicated (OYA61-E10.10) Assessment: Instructions: As above. Avoid all alcohol use.Patient Instructions/Care Plan: Mixed anxiety and depressive disorder: Continue current Prozac and Antabuse daily. Continue with your counselor at [facility], recommend you establish with a prescriber with [facility] as well. ER for suicidal thoughts or thoughts of self harm.Personal history of self-harm: As above.Alcohol abuse- uncomplicated: As above. Avoid all alcohol use. Plan developed in collaboration with patient and/or familyMedications:DISULFIRAM 250 MG ORAL TABLETPROZAC 20 MG ORAL CAPSULEMedication Changes:Added: PROZAC 10 MG ORAL CAPSULERefilled:PROZAC 20 MG ORAL CAPSULE-Take 1 capsule po daily Qty: 30[Capsule] Refills: 1 Method: ElectronicNew Prescription:DISULFIRAM 250 MG ORAL TABLET-Take 1 tablet po daily Qty: 30[Tablet] Refills: 1 Method: ElectronicChanged:From: ORAL PROZAC 10 MG ORAL CAPSULE Qty: [id number] Refills: 30[Capsule] To: PROZAC 20 MG ORAL CAPSULE-Take 1 capsule po daily Qty: 30[Capsule] Refills: 1Allergies:No Known Allergies (updated 12/30/2019) Orders:Adult - Ofc Vst, NEW, Level III [CPT- 30409] Follow-Up Return to clinic: in 4 weeks for preventive care visitAdditional Follow-Up: annual PEClinical Visit Summary Completed Name Value Range Interpretation Code Description Data Maureen rce(s) Supporting Document(s) Procedure Social History Code Duration Value Status Description Data Source(s ) Smoking 09/27/2020 12:00:00 AM EDT Unknown if ever smoked comp leted Unknown if ever smoked [facility] ([facility]) Smoking 09/21/2020 12:00:00 AM EDT Unknown if ever smoked comp leted Unknown if ever smoked [facility] ([facility]) Smoking 09/06/2020 12:00:00 AM EDT Unknown if ever smoked comp leted Unknown if ever smoked [facility] ([facility]) Smoking 08/29/2020 12:00:00 AM EDT Unknown if ever smoked comp leted Unknown if ever smoked [facility] ([facility]) Smoking 08/21/2020 12:00:00 AM EDT Unknown if ever smoked comp leted Unknown if ever smoked [facility] ([facility]) Smoking 07/11/2020 12:00:00 AM EDT Unknown if ever smoked comp leted Unknown if ever smoked [facility] ([facility]) Smoking 06/08/2020 12:00:00 AM EST Unknown if ever smoked comp leted Unknown if ever smoked [facility] ([facility]) Smoking 05/15/2020 12:00:00 AM EST Unknown if ever smoked comp leted Unknown if ever smoked [facility] ([facility]) Smoking 05/11/2020 12:00:00 AM EST Unknown if ever smoked comp leted Unknown if ever smoked [facility] ([facility]) Smoking 04/26/2020 12:00:00 AM EST Unknown if ever smoked comp leted Unknown if ever smoked [facility] ([facility]) Smoking 04/06/2020 12:00:00 AM EST Unknown if ever smoked comp leted Unknown if ever smoked [facility] ([facility]) Smoking 04/02/2020 12:00:00 AM EST Unknown if ever smoked comp leted Unknown if ever smoked [facility] ([facility]) Smoking 03/21/2020 12:00:00 AM EST Unknown if ever smoked comp leted Unknown if ever smoked [facility] ([facility]) Smoking 03/14/2020 12:00:00 AM EST Unknown if ever smoked comp leted Unknown if ever smoked [facility] ([facility]) Smoking 03/07/2020 12:00:00 AM EST Unknown if ever smoked comp leted Unknown if ever smoked [facility] ([facility]) Vital Signs ID Date Data Source UNK Name Value Range Interpretation Code Description Data Source(s) Body height 0.00 in Normal (applies to non-numeric resu lts) 0.00 in [facility] ([facility]) Body weight Measured 0.00 lbs Normal (applies to n on-numeric results) 0.00 lbs [facility] ([facility]) Body mass index (BMI) [Ratio] 0.00 kg/m2 No rmal (applies to non-numeric results) 0.00 kg/m2 [facility] ([facility]) Systolic blood pressure 0 mm[Hg] Normal (applies t o non-numeric results) 0 mm[Hg] [facility] ([facility]) Diastolic blood pressure 0 mm[Hg] Normal (applies to non-numeric results) 0 mm[Hg] [facility] ([facility]) Body height 0.00 in Normal (applies to non-numeric resu lts) [facility] Body weight Measured 0.00 lbs Normal (applies to n on-numeric results) 0.00 lbs [facility] ([facility]) Body mass index (BMI) [Ratio] 0.00 kg/m2 No rmal (applies to non-numeric results) 0.00 kg/m2 [facility] ([facility]) Systolic blood pressure 0 mm[Hg] Normal (applies t o non-numeric results) 0 mm[Hg] [facility] ([facility]) Diastolic blood pressure 0 mm[Hg] Normal (applies to non-numeric results) 0 mm[Hg] [facility] Body height 0.00 in Normal (applies to non-numeric resu lts) 0.00 in [facility] ([facility]) Body weight Measured 0.00 lbs Normal (applies to n on-numeric results) 0.00 lbs [facility] ([facility]) Body mass index (BMI) [Ratio] 0.00 kg/m2 No rmal (applies to non-numeric results) 0.00 kg/m2 [facility] ([facility]) Systolic blood pressure 0 mm[Hg] Normal (applies t o non-numeric results) 0 mm[Hg] [facility] ([facility]) Diastolic blood pressure 0 mm[Hg] Normal (applies to non-numeric results) 0 mm[Hg] [facility] Systolic blood pressure 131 mm[Hg] 131 mm[Hg] M [facility] ([facility]) Diastolic blood pressure 73 mm[Hg] 73 mm[Hg] [facility] ([facility]) [facility] 83 /min 83 /[facility] Respiratory rate 18 /min 18 /[facility] Body temperature 98.1 [degF] 98.1 [degF] YESSICA ([facility]) Body weight 159.00 [lb_av] 159.00 [lb_av] JEANETH Bergman ([facility])
--- OUTSIDE RECORDS SUMMARY | 2021-01-26 04:20 | CCD ---
Author Author [facility] Organization [facility] Address Unknown Phone Unavailable Care Team Providers Care Color Tester Name Role Phone LANCASTER, RAI PIYUSH RPA-C [...] LANCASTER, RAI PIYUSH RPA-C Unavailable Unavailable LANCASTER, RIA PIYUSH RPA-C Unavailable Unavailable LANCASTER, RAI PIYUSH [...] LANCASTER, RAI PIYUSH RPA-C Unavailable Unavailable Caputo, R Elie [employer] Unavailable Unavailable Caputo, R Elie [employer] Unavailable Unavailable Caputo, R Elie [employer] Unavailable Unavailable Lindsey Cornell Unavailable Re-disclosure Warning The records that you [...] is protected by Article 27-F of the [facility] Public Health law. If you continue you may have access to information: Regarding HIV / AIDS; Provided by facilities licensed or operated by the [facility] Office of Mental Health; or Provided by the [facility] Office for People With Developmental Disabilities. If such information is present, then the following [facility] mandated warning applies: This information has been [...] law may result in a fine or long-term sentence or both. A general authorization for the release of medical or other information is NOT sufficient authorization for further disc losure. Encounters Encounter Providers Location Date Indications Data Source(s ) Extended Individual Psychotherapy - 45 min Attender: Arvind Cornell [facility] 09/27/2020 07:00:00 AM EDT - 09/27/2020 07:00:00 AM EDT [facility] ([facility]) Attender: Lindsey Cornell 09/27/2020 12:00:00 AM E DT [facility] ([facility]) Long-Term - Case Management Attender: Lindsey Cornell [facility] ail 09/21/2020 12:15:00 PM EDT - 09/21/2020 12:15:00 PM EDT [facility] ([facility]) Attender: Lindsey Cornell 09/21/2020 12:00:00 AM E DT [facility] ([facility]) Attender: Lindsey Cornell 09/06/2020 12:00:00 AM E DT [facility] ([facility]) Brief Individual Psychotherapy - 30 min Attender: Lindsey maciel [facility] 09/05/2020 02:00:00 AM EDT - 09/05/2020 02:00:00 AM EDT [facility] ([facility]) Outpatient Attender: Elie Caputo NP [facility] 08/29/2020 08:00:00 AM EDT - 08/29/2020 08:00:00 AM EDT [facility] ([facility]) Attender: Elie Caputo NP 08/29/2020 12:00:00 AM EDT [facility] ([facility]) Attender: Lindsey Cornell 08/21/2020 12:00:00 AM E DT [facility] ([facility]) Extended Individual Psychotherapy - 45 min Att[facility] 08[facility]20/[facility] 01:00:00 AM EDT - 08/20/2020 01:00:00 AM EDT [facility] ([facility]) Outpatient Attender: Elie Caputo NP [facility] 07/11/2020 09:00:00 AM EDT - 07/11/2020 09:00:00 AM EDT [facility] ([facility]) Attender: Elie Caputo NP 07/11/2020 12:00:00 AM EDT [facility] ([facility]) Extended Individual Psychotherapy - 45 min Attender: Arvind Cornell [facility] 06/08/2020 09:00:00 AM EST - 06/08/2020 09:00:00 AM EST [facility] ([facility]) Attender: Lindsey Cornell 06/08/2020 12:00:[address] [facility] ([facility]) Telemed Diagnostic Eval Attender: Elie Caputo NP [facility] 05/15/2020 08:00:00 AM EST - 05/15/2020 08:00:00 AM EST [facility] ([facility]) Attender: Elie Caupto NP 05/15/2020 12:00:00 AM EST [facility] ([facility]) Extended Individual Psychotherapy - 45 min Attender: Arvind Cornell [facility] 05/11/2020 12:15:00 PM EST - 05/11/2020 12:15:00 PM EST [facility] ([facility]) Attender: Lindsey Cornell 05/11/2020 12:00:[address] [facility] ([facility]) Attender: Lindsey Cornell 04/26/2020 12:00:[address] [facility] ([facility]) Brief Individual Psychotherapy - 30 min Att[facility]: [facility]iel [facility] 04/25/2020 02:00:00 AM EST - 04/25/2020 02:00:00 AM EST [facility] ([facility]) Crisis Intervention - Brief Attender: Lindsey Cornell [place] 04/06/2020 02:00:00 AM EST - 04/06/2020 02:00:00 AM EST [facility] ([facility]) Attender: Lindsey Cornell 04/06/2020 12:00:[address] [facility] ([facility]) Brief Individual Psychotherapy - 30 min Attender: Lindsey maciel [facility] 04/02/2020 12:15:00 PM EST - 04/02/2020 12:15:00 PM EST [facility] ([facility]) Attender: Lindsey Cornell 04/02/2020 12:00:[address] [facility] ([facility]) Extended Individual Psychotherapy - 45 min Attender: Arvind Cornell [facility] 03/21/2020 09:15:00 AM EST - 03/21/2020 09:15:00 AM EST [facility] ([facility]) Attender: Lindsey Cornell 03/21/2020 12:00:[address] [facility] ([facility]) Brief Individual Psychotherapy - 30 min Attender: Lindsey maciel [facility] 03/14/2020 02:00:00 AM EST - 03/14/2020 02:00:00 AM EST [facility] ([facility]) Attender: Lindsey Cornell 03/14/2020 12:00:[address] [facility] ([facility]) Crisis Intervention - Brief Attender: Lindsey Corenll [facility] 03/07/2020 08:30:00 AM EST - 03/07/2020 08:30:00 AM EST [facility] ([facility]) Attender: Lindsey Cornell 03/07/2020 12:00:[address] [facility] ([facility]) Outpatient Attender: PIYUSH CAMEJO 01/15/2020 03:23:01 PM EDT [facility] Outpatient Attender: PIYUSH JIMÉNEZ 12/30/2019 02:49:59 PM EDT [facility] Functional Status Medications Medication Brand Name Start Date Product Form Dose Route Admi nistrative Instructions Pharmacy Instructions Status Indications Reaction Description Data Source(s) Clindamycin 300 MG Oral Capsule Clindamycin HCL 09/04/2020 12:00:00 A M EDT ORAL active [facility] ([facility]) Ibuprofen 200 MG Oral Tablet Ibuprofen 200 06/18/2020 12:00:00 AM EDT ORAL completed [facility] ([facility]) Hydroxyzine Hydrochloride 50 MG Oral Tablet Hydroxyzine HCL 06/13/2020 12:00:00 AM EDT ORAL active [facility] ([facility]) Hydroxyzine Hydrochloride 50 MG Oral Tablet hydroxyzine HCl 06/13/2020 12:00:00 AM EDT 50 mg by mouth completed <td ID="MedicationRxNorm_3">762801</td><td ID="MedicationMedication_3">hydroxyzine HCl</td><td ID="MedicationRoute_3">by mouth</td><td ID="MedicationRouteConcept_3">I82617</td><td ID="MedicationStartDate_3">06/13/2020</td><td ID="MedicationStopDate_3">12/10/2020</td><td ID="MedicationDosageFrequency_3">at bedtime</td><td ID="MedicationDuration_3">30</td><td ID="MedicationFormulaStrength_3">50 mg</td><td ID="MedicationDosageForm_3">tablet</td><td ID="MedicationDosageFormCode_3"></td><td ID="MedicationDosageDescription_3"></td><td ID="MedicationMedicationId_3">[id number]</td><td ID="MedicationAccount_3">[id number]</td><td ID="MedicationNpid_3">[id number]</td><td ID="MedicationAuthorFirstName_3">Elie</td><td ID="MedicationAuthorLastName_3">Caputo</td><td ID="MedicationTaxonomyCode_3">[id number]</td><td ID="MedicationTaxonomyDesc_3">Nurse Practitioner</td><td ID="MedicationPhoneNumber_3">[phone]</td> [facility] Hydroxyzine Hydrochloride 50 MG Oral Tablet hydroxyzine HCl 06/13/2020 12:00:00 AM EDT 50 mg by mouth completed <td ID="MedicationRxNorm_2">138577</td><td ID="MedicationMedication_2">hydroxyzine HCl</td><td ID="MedicationRoute_2">by mouth</td><td ID="MedicationRouteConcept_2">T11665</td><td ID="MedicationStartDate_2">06/13/2020</td><td ID="MedicationStopDate_2">12/10/2020</td><td ID="MedicationDosageFrequency_2">at bedtime</td><td ID="MedicationDuration_2">30</td><td ID="MedicationFormulaStrength_2">50 mg</td><td ID="MedicationDosageForm_2">tablet</td><td ID="MedicationDosageFormCode_2"></td><td ID="MedicationDosageDescription_2"></td><td ID="MedicationMedicationId_2">[id number]</td><td ID="MedicationAccount_2">[id number]</td><td ID="MedicationNpid_2">[id number]</td><td ID="MedicationAuthorFirstName_2">Elie</td><td ID="MedicationAuthorLastName_2">Caputo</td><td ID="MedicationTaxonomyCode_2">[id number]</td><td ID="MedicationTaxonomyDesc_2">Nurse Practitioner</td><td ID="MedicationPhoneNumber_2">[phone]</td> [facility] ([facility]) Amoxicillin 875 MG Oral Tablet Amoxicillin 06/12/2020 12:00:00 AM EDT ORAL completed [facility] ([facility]) Fluoxetine 40 MG Oral Capsule Fluoxetine HCL 05/15/2020 12:00:[address] ORAL completed [facility] ([facility]) olanzapine 5 MG Oral Tablet Olanzapine 05/15/2020 12:00:00 AM EST ORAL active [facility] ([facility]) Fluoxetine 40 MG Oral Capsule fluoxetine 05/15/2020 12:00:00 AM EST 40 mg by mouth completed <td ID="Medica tionRxNorm_1">930487</td><td ID="MedicationMedication_1">fluoxetine</td><td ID="MedicationRoute_1">by mouth</td><td ID="MedicationRouteConcept_1">U28459</td><td ID="MedicationStartDate_1">05/15/2020</td><td ID="MedicationStopDate_1">11/11/2020</td><td ID="MedicationDosageFrequency_1">every morning</td><td ID="MedicationDuration_1">30</td><td ID="MedicationFormulaStrength_1">40 mg</td><td ID="MedicationDosageForm_1">capsule</td><td ID="MedicationDosageFormCode_1"></td><td ID="MedicationDosageDescription_1"> </td><td ID="MedicationMedicationId_1">[id number]</td><td ID="MedicationAccount_1">[id number]</td><td ID="MedicationNpid_1">[id number]</td><td ID="MedicationAuthorFirstName_1">Elie</td><td ID="MedicationAuthorLastName_1">Caputo</td><td ID="MedicationTaxonomyCode_1">[id number]</td><td ID="MedicationTaxonomyDesc_1">Nurse Practitioner</td><td ID="MedicationPhoneNumber_1">[phone]</td> [facility] ([facility]) olanzapine 5 MG Oral Tablet olanzapine 05/15/2020 12:00:00 AM EST 5 mg by mouth completed <td ID="Medica tionRxNorm_2">191222</td><td ID="MedicationMedication_2">olanzapine</td><td ID="MedicationRoute_2">by mouth</td><td ID="MedicationRouteConcept_2">Z68461</td><td ID="MedicationStartDate_2">05/15/2020</td><td ID="MedicationStopDate_2">11/11/2020</td><td ID="MedicationDosageFrequency_2">at bedtime</td><td ID="MedicationDuration_2">30</td><td ID="MedicationFormulaStrength_2">5 mg</td><td ID="MedicationDosageForm_2">tablet</td><td ID="MedicationDosageFormCode_2"></td><td ID="MedicationDosageDescription_2"></td><td ID="MedicationMedicationId_2">[id number]</td><td ID="MedicationAccount_2">[id number]</td><td ID="MedicationNpid_2">[id number]</td><td ID="MedicationAuthorFirstName_2">Elie</td><td ID="MedicationAuthorLastName_2">Caputo</td><td ID="MedicationTaxonomyCode_2">[id number]</td><td ID="MedicationTaxonomyDesc_2">Nurse Practitioner</td><td ID="MedicationPhoneNumber_2">[phone]</td> [facility] ([facility]) olanzapine 5 MG Oral Tablet olanzapine 05/15/2020 12:00:00 AM EST 5 mg by mouth completed <td ID="Medica tionRxNorm_1">916120</td><td ID="MedicationMedication_1">olanzapine</td><td ID="MedicationRoute_1">by mouth</td><td ID="MedicationRouteConcept_1">Y43050</td><td ID="MedicationStartDate_1">05/15/2020</td><td ID="MedicationStopDate_1">11/11/2020</td><td ID="MedicationDosageFrequency_1">at bedtime</td><td ID="MedicationDuration_1">30</td><td ID="MedicationFormulaStrength_1">5 mg</td><td ID="MedicationDosageForm_1">tablet</td><td ID="MedicationDosageFormCode_1"></td><td ID="MedicationDosageDescription_1"></td><td ID="MedicationMedicationId_1">[id number]</td><td ID="MedicationAccount_1">[id number]</td><td ID="MedicationNpid_1">[id number]</td><td ID="MedicationAuthorFirstName_1">Elie</td><td ID="MedicationAuthorLastName_1">Caputo</td><td ID="MedicationTaxonomyCode_1">[id number]</td><td ID="MedicationTaxonomyDesc_1">Nurse Practitioner</td><td ID="MedicationPhoneNumber_1">[phone]</td> [facility] ([facility]) Ibuprofen 200 MG Oral Capsule Ibuprofen 05/04/2020 12:00:00 AM EST completed [facility] ([facility]) Sodium Chloride 0.111 MEQ/ML Nasal Solution Nasal Moist 04/20/2020 12:00:00 AM EST completed [facility] ([facility]) Fluoxetine 20 MG Oral Capsule Fluoxetine HCL 03/09/2020 12:00:[address] ORAL active [facility] ([facility]) 250 mg 12/31/2019 12:00:00 AM EDT tablet [...] Covered democrat ID Covered democrat's relationship to crawford Policy [place] Plan Information [facility] [id number] SP [id number] [facility] PLAN [facility] [id number] SP [id number] [facility] [id number] SP [id number] [facility]AN [facility] [id number] SP [id number] [facility] [id number] SP [id number] [facility] [id number] SP [id number] [facility] [id number] SP [id number] [facility] O [id number] S [id number] [facility] [id number] S [id number] SELF PAY ONLY [id number] SP [id number] Problems, Conditions, and Diagnoses Code Display Name Description Problem Type Effective Dates Data Source(s) F10.20 Alcohol dependence, uncomplicated Alcohol Use Disorder , Severe Condition 09/27/2020 12:00:00 AM EDT [facility] ([facility]) F43.9 Reaction to severe stress, unspecified U nspecified Trauma- and Stressor- Related Disorder Condition 09/27/2020 12:00:00 AM EDT [facility] ([facility]) F10.20 Alcohol dependence, uncomplicated Alcohol Use Di sorder, Moderate Condition 09/21/2020 12:00:00 AM EDT [facility] ([facility]) F43.9 Reaction to severe stress, unspecified U nspecified Trauma- and Stressor- Related Disorder Condition 09/21/2020 12:00:00 AM EDT [facility] ([facility]) F43.23 Adjustment disorder with mixed anxiety a nd depressed mood Adjustment Disorder, With mixed anxiety and depressed mood Condition 2020 12:00:00 AM EDT [facility] ([facility]) F31.81 Bipolar II disorder Bipolar II Disorder Condition 0 09/21/2020 12:00:00 AM EDT [facility] ([facility]) F32.9 Major depressive disorder, single episod e, unspecified Unspecified depressive Disorder Condition 05/11/2020 12:00:00 AM EST [facility] ([facility]) V15.59 Personal history of self-harm Personal history of self -harm 12/30/2019 02:48:00 PM EDT [facility] [id number] Alcohol abuse, uncomplicated Alcohol abuse, uncomplica henri 12/30/2019 02:48:00 PM EDT [facility] 300.4 Mixed anxiety and depressive disorder Mi xed anxiety and depressive disorder 12/30/2019 02:48:00 PM EDT [facility] Surgeries/Procedures Procedure Description Date Indications Data Source(s) Extended Individual Psychotherapy - 45 min 09/27/2020 12:00:00 AM EDT - 09/27/2020 12:00:00 AM EDT [facility] ([facility]) Extended Individual Psychotherapy - 45 min 12:00:00 AM EDT [facility] ([facility]) Long-Term - Case Management 09/21/2020 12:00: 00 AM EDT - 09/21/2020 12:00:00 AM EDT [facility] ([facility]) Long-Term - Case Management 09/21/2020 12:00:00 AM EDT [facility] ([facility]) Brief Individual Psychotherapy - 30 min 09/06/2020 12:00:00 AM EDT - 09/06/2020 12:00:00 AM EDT [facility] ([facility]) Brief Individual Psychotherapy - 30 min 09/05/2020 12: 00:00 AM EDT [facility] ([facility]) MHC Telemed E/M Lvl 3--Est pt 08/29/2020 12:00:00 AM EDT - 08/29/2020 12:00:00 AM EDT [facility] ([facility]) MHC Telemed E/M Lvl 3--Est pt 08/29/2020 12:00:00 AM E DT [facility] ([facility]) Extended Individual Psychotherapy - 45 min 08/21/2020 12:00:00 AM EDT - 08/21/2020 12:00:00 AM EDT [facility] ([facility]) Extended Individual Psychotherapy - 45 min 12:00:00 AM EDT [facility] ([facility]) MHC Telemed E/M Lvl 2--Est pt 07/11/2020 12:00:00 AM EDT - 07/11/2020 12:00:00 AM EDT [facility] ([facility]) MHC Telemed E/M Lvl 2--Est pt 07/11/2020 12:00:00 AM E DT [facility] ([facility]) Extended Individual Psychotherapy - 45 min 06/08/2020 12:00:00 AM EST - 06/08/2020 12:00:00 AM EST [facility] ([facility]) Extended Individual Psychotherapy - 45 min 12:00:00 AM EST [facility] ([facility]) Telemed Diagnostic Eval 05/15/2020 12:00 :00 AM EST - 05/15/2020 12:00:00 AM EST [facility] ([facility]) Telemed Diagnostic Eval 05/15/2020 12:00:00 AM EST [facility] ([facility]) Extended Individual Psychotherapy - 45 min 05/11/2020 12:00:00 AM EST - 05/11/2020 12:00:00 AM EST [facility] ([facility]) Extended Individual Psychotherapy - 45 min 12:00:00 AM EST [facility] ([facility]) Brief Individual Psychotherapy - 30 min 04/26/2020 12:00:00 AM EST - 04/26/2020 12:00:00 AM EST [facility] ([facility]) Brief Individual Psychotherapy - 30 min 04/25/2020 12: 00:00 AM EST [facility] ([facility]) Crisis intervention service, per 15 minutes 04/06/2020 12:00:00 AM EST - 04/06/2020 12:00:00 AM EST [facility] ([facility]) Crisis intervention service, per 15 minutes 04/06/2020 12:00:00 AM EST [facility] ([facility]) Brief Individual Psychotherapy - 30 min 04/02/2020 12:00:00 AM EST - 04/02/2020 12:00:00 AM EST [facility] ([facility]) Brief Individual Psychotherapy - 30 min 04/02/2020 12: 00:00 AM EST [facility] ([facility]) Extended Individual Psychotherapy - 45 min 03/21/2020 12:00:00 AM EST - 03/21/2020 12:00:00 AM EST [facility] ([facility]) Extended Individual Psychotherapy - 45 min 0 12:00:00 AM EST [facility] ([facility]) Brief Individual Psychotherapy - 30 min 03/14/2020 12:00:00 AM EST - 03/14/2020 12:00:00 AM EST [facility] ([facility]) Brief Individual Psychotherapy - 30 min 03/14/2020 12: 00:00 AM EST [facility] ([facility]) Crisis intervention service, per 15 minutes 03/07/2020 12:00:00 AM EST - 03/07/2020 12:00:00 AM EST [facility] ([facility]) Crisis intervention service, per 15 minutes 03/07/2020 12:00:00 AM EST [facility] ([facility]) Results ID Date Data Source [id number] 12/30/2019 02:15:52 PM EDT [facility] Measurements & CalculationsHeight: 69 inches (5 ft. [...] 24 y/o male, presents for new patient [facility] hospital discharge.Pt had a very stressful night of communication with his ex ( with his ex x 2-3 months and limited interaction with his son). Has court date for paternity case on 01/10/2020. Pt reports cutting himself on his left arm while intoxicated, denies suicidal attempt but describes it as a call for attention. Was admitted to [facility] x 3 days, was started on Prozac and Antabuse. Pt states he is already established with [facility] previously for mental health counseling and alcohol [...] of Naltrexone. [place] PCP was [place]. Had a Tdap while in the ER, had asmita to the laceration and have them removed by [facility] 7-10 days after the placement. HPI performed by: Piyush FERNÁNDEZ, December 30, 2019 2:34 PMProblem ReviewProblem List was reviewed and/or updated during this visit.Medication Reconciliation & ReviewMedication List was reviewed and/or updated during this visit, including review of any oxii-owa-fdzotoc medications, herbal therapies, and/or supplements.Allergy Re viewAllergy [...] Antabuse daily. Continue with your counselor at [facility], recommend you establish with a prescriber with [facility] as well. ER for suicidal thoughts or thoughts of self harm.Personal history of self-harm (ICD-V15.59) (ACL26-Y01.5) Assessment: Instructions: As above.Alcohol abuse, uncomplicated (SKM35-H97.10) Assessment: Instructions: As above. Avoid all alcohol use.Patient Instructions/Care Plan: Mixed anxiety and depressive disorder: Continue current Prozac and Antabuse daily. Continue with your counselor at [facility], recommend you establish with a prescriber with [facility] as well. ER for suicidal thoughts or [...] ORAL PROZAC 10 MG ORAL CAPSULE Qty: [id number] Refills: 30[Capsule] To: PROZAC 20 MG ORAL CAPSULE-Take 1 capsule po daily Qty: 30[Capsule] Refills: 1Allergies:No Known Allergies (updated 12/30/2019) Orders:Adult - Ofc Vst, NEW, Level III [CPT- 07845] Follow-Up Return to clinic: in 4 weeks for preventive care visitAdditional Follow-Up: annual PEClinical Visit Summary Completed Name Value Range Interpretation Code Description Data Maureen rce(s) Supporting Document(s) Procedure Social History Code Duration Value Status Description Data Source(s ) Smoking 09/27/2020 12:00:00 AM EDT Unknown if ever smoked comp leted Unknown if ever smoked [facility] ([facility]) Smoking 09/21/2020 12:00:00 AM EDT Unknown if ever smoked comp leted Unknown if ever smoked [facility] ([facility]) Smoking 09/06/2020 12:00:00 AM EDT Unknown if ever smoked comp leted Unknown if ever smoked [facility] ([facility]) Smoking 08/29/2020 12:00:00 AM EDT Unknown if ever smoked comp leted Unknown if ever smoked [facility] ([facility]) Smoking 08/21/2020 12:00:00 AM EDT Unknown if ever smoked comp leted Unknown if ever smoked [facility] ([facility]) Smoking 07/11/2020 12:00:00 AM EDT Unknown if ever smoked comp leted Unknown if ever smoked [facility] ([facility]) Smoking 06/08/2020 12:00:00 AM EST Unknown if ever smoked comp leted Unknown if ever smoked [facility] ([facility]) Smoking 05/15/2020 12:00:00 AM EST Unknown if ever smoked comp leted Unknown if ever smoked [facility] ([facility]) Smoking 05/11/2020 12:00:00 AM EST Unknown if ever smoked comp leted Unknown if ever smoked [facility] ([facility]) Smoking 04/26/2020 12:00:00 AM EST Unknown if ever smoked comp leted Unknown if ever smoked [facility] ([facility]) Smoking 04/06/2020 12:00:00 AM EST Unknown if ever smoked comp leted Unknown if ever smoked [facility] ([facility]) Smoking 04/02/2020 12:00:00 AM EST Unknown if ever smoked comp leted Unknown if ever smoked [facility] ([facility]) Smoking 03/21/2020 12:00:00 AM EST Unknown if ever smoked comp leted Unknown if ever smoked [facility] ([facility]) Smoking 03/14/2020 12:00:00 AM EST Unknown if ever smoked comp leted Unknown if ever smoked [facility] ([facility]) Smoking 03/07/2020 12:00:00 AM EST Unknown if ever smoked comp leted Unknown if ever smoked [facility] ([facility]) Vital Signs ID Date Data Source UNK Name Value Range Interpretation Code Description Data Source(s) Body height 0.00 in Normal (applies to non-numeric resu lts) 0.00 in [facility] ([facility]) Body weight Measured 0.00 lbs Normal (applies to n on-numeric results) 0.00 lbs [facility] ([facility]) Body mass index (BMI) [Ratio] 0.00 kg/m2 No rmal (applies to non-numeric results) 0.00 kg/m2 [facility] ([facility]) Systolic blood pressure 0 mm[Hg] Normal (applies t o non-numeric results) 0 mm[Hg] [facility] ([facility]) Diastolic blood pressure 0 mm[Hg] Normal (applies to non-numeric results) 0 mm[Hg] [facility] ([facility]) Body height 0.00 in Normal (applies to non-numeric resu lts) 0.00 in [facility] ([facility]) Body weight Measured 0.00 lbs Normal (applies to n on-numeric results) 0.00 lbs [facility] ([facility]) Body mass index (BMI) [Ratio] 0.00 kg/m2 No rmal (applies to non-numeric results) 0.00 kg/m2 [facility] ([facility]) Systolic blood pressure 0 mm[Hg] Normal (applies t o non-numeric results) 0 mm[Hg] [facility] ([facility]) Diastolic blood pressure 0 mm[Hg] Normal (applies to non-numeric results) 0 mm[Hg] [facility] ([facility]) Body height 0.00 in Normal (applies to non-numeric resu lts) 0.00 in [facility] ([facility]) Body weight Measured 0.00 lbs Normal (applies to n on-numeric results) 0.00 lbs [facility] ([facility]) Body mass index (BMI) [Ratio] 0.00 kg/m2 No rmal (applies to non-numeric results) 0.00 kg/m2 [facility] ([facility]) Systolic blood pressure 0 mm[Hg] Normal (applies t o non-numeric results) 0 mm[Hg] [facility] ([facility]) Diastolic blood pressure 0 mm[Hg] Normal (applies to non-numeric results) 0 mm[Hg] [facility] ([facility]) Systolic blood pressure 131 mm[Hg] 131 mm[Hg] M ED[facility] ([facility]) Diastolic blood pressure 73 mm[Hg] 73 mm[Hg] [facility] ([facility]) [facility] 83 /min 83 /[facility] Respiratory rate 18 /min 18 /min [facility] Body temperature 98.1 [degF] 98.1 [degF] YESSICA ([facility]) Body weight 159.00 [lb_av] 159.00 [lb_av] JEANETH Bergman ([facility])
[2021-01-27] MEDS ORDERED: AUGM875T28 PO (23:57)
== END 2021-01-26 04:20 | disposition left against medical advice (07) ==
LOC: M ED 23:57
DX: Z53.29 Procedure and treatment not carried out because of patient's decision for other reasons (principal)

== ENCOUNTER 2021-01-27 19:03 | Emergency (ER) | payer MEDICAID, SELFPAY ==
[~2021-01-27] VITALS: Ht 175.3 cm; Wt 75.0 kg
[~2021-01-27 19:03] MED LIST changes: +DISU1TAB6 PO; -DISU250T PO
[2021-01-27] MEDS ORDERED: AMPICILLIN SOD/SULBACTAM SOD 3 GM in D5W MINI-BAG PLUS 100 ML IV ONE (20:15)
[2021-01-27] MEDS ORDERED: dexameTHASONE 20MG/5ML VIAL (J1100 PER 1MG) IV ONE (20:15)
[2021-01-27] MEDS ORDERED: KETOROLAC 30 MG/ML 1ML VIAL IV ONE (20:35)
[2021-01-27 20:51] LABS: BASO % 0.3 % (0.0-1.0); EOS % 0.4 % (0.0-3.0); HEMATOCRIT 46.6 % (42.0-52.0); HEMOGLOBIN 15.9 g/dl (13.5-17.5); LYMPH # 1.8 10^3/uL (1.5-5.0); LYMPH % 22.6 % (24.0-44.0); MEAN CORPUSCULAR HEMOGLOBIN 30.1 pg (27.0-33.0); MEAN CORPUSCULAR HGB CONC 34.1 g/dl (32.0-36.5); MEAN CORPUSCULAR VOLUME 88.1 fl (80.0-96.0); MONO # 0.6 10^3/uL (0.0-0.8); MONO % 7.3 % (2.0-8.0); NEUTROPHILS # 5.5 10^3/uL (1.5-8.5); NEUTROPHILS % 69.1 % (36.0-66.0); RED BLOOD COUNT 5.29 10^6/uL (4.30-6.10)
[2021-01-27 20:53] LABS: PLATELET COUNT, AUTOMATED 93 10^3/uL (150-450)
[2021-01-27] MEDS ORDERED: ISOVUE-370 76% 100ML VIAL As Ordered ONE (21:06)
[2021-01-27 21:11] LABS: BILIRUBIN,DIRECT 0.2 MG/DL (0.0-0.2); BILIRUBIN,TOTAL 0.3 MG/DL (0.2-1.0); C REACTIVE PROTEIN QUANTITATIV 1.74 MG/DL (0.00-0.30); TOTAL PROTEIN 7.4 GM/DL (6.4-8.2)
[2021-01-27] MEDS ORDERED: AUGM875T28 PO (23:57)
[2021-01-28] VITALS: BP 136/75
== END 2021-01-28 00:10 | disposition home or self-care (01) ==
LOC: M ED 19:03
DX: K04.7 Periapical abscess without sinus (principal); F17.210 Nicotine dependence, cigarettes, uncomplicated
CPT/HCPCS: 70487; 80047; 80076; 85025; 85049; 85055; 86140; 96365; 96375; 99284; J1100; J1885; Q9967

== ENCOUNTER 2021-04-07 20:07 | Emergency (ER) | payer MEDICAID, SELFPAY ==
[~2021-04-07] VITALS: Ht 175.3 cm; Wt 79.5 kg
[~2021-04-07 20:07] MED LIST changes: +AUGM875T28 PO
[2021-04-07] MEDS ORDERED: AUGMENTIN 875 MG TAB PO ONE (22:20)
[2021-04-07] MEDS ORDERED: KETOROLAC 30 MG/ML 1ML VIAL IM ONE (22:20)
[2021-04-07] MEDS ORDERED: AUGM875T28 PO (22:20)
[2021-04-07 23:08] VITALS: BP 131/83
== END 2021-04-08 00:14 | disposition home or self-care (01) ==
LOC: M ED 20:07
DX: K04.7 Periapical abscess without sinus (principal); K03.81 Cracked tooth; D69.3 Immune thrombocytopenic purpura; F11.10 Opioid abuse, uncomplicated; F17.210 Nicotine dependence, cigarettes, uncomplicated
CPT/HCPCS: 96372; 99284; J1885

== ENCOUNTER 2022-03-28 12:16 | Emergency (ER) | payer OTHER, SELFPAY ==
[~2022-03-28] VITALS: Ht 175.3 cm; Wt 76.1 kg
[2022-03-28 12:18] VITALS: BP 135/59
== END 2022-03-29 00:58 | disposition left against medical advice (07) ==
LOC: M ED 12:16
DX: Z53.21 Procedure and treatment not carried out due to patient leaving prior to being seen by health care provider (principal)

== ENCOUNTER 2022-05-06 13:17 | Emergency (ER) | payer OTHER ==
[~2022-05-06] VITALS: Ht 172.7 cm; Wt 78.4 kg
[2022-05-06] MEDS ORDERED: predniSONE 20 MG TAB PO ONE (15:45)
[2022-05-06] MEDS ORDERED: PENI500T PO (15:49)
[2022-05-06 15:59] VITALS: BP 141/88
== END 2022-05-06 16:00 | disposition home or self-care (01) ==
LOC: M ED 13:17
DX: J02.9 Acute pharyngitis, unspecified (principal)
CPT/HCPCS: 87428; 99283; J7512

== ENCOUNTER 2022-07-27 07:12 | Inpatient (IN) | payer OTHER ==
[~2022-07-27] VITALS: Ht 175.3 cm; Wt 75.0 kg
[~2022-07-27 07:12] MED LIST changes: +PENI500T PO
[2022-07-27] MEDS: MULTIVITAMINS/MINERALS THERAP 1 TAB PO SCH (09:00)
[2022-07-27] MEDS: FOLIC ACID 1MG TAB PO SCH (09:00)
[2022-07-27] MEDS: THIAMINE 100 MG TAB PO SCH ×2 (09:00→21:31)
[2022-07-27] MEDS: NICOTINE 21MG/24HR 1 EA TRANSDERMAL TD SCH (09:00)
[2022-07-27 09:20] LABS: ETHYL ALCOHOL (ETHANOL) 0.123 % (0.000-0.010)
[2022-07-27 09:22] LABS: ACETAMINOPHEN LEVEL < 2.0 UG/ML (10.0-20.0); ALBUMIN 4.2 G/DL (3.2-5.2); ALKALINE PHOSPHATASE 61 U/L (46-116); ALT/SGPT 23 U/L (7.0-40); AST/SGOT 27 U/L (<34); BILIRUBIN,DIRECT 0.2 MG/DL (<0.4); BILIRUBIN,TOTAL 0.4 MG/DL (0.3-1.2); BLOOD UREA NITROGEN 7 MG/DL (9-23); CALCIUM LEVEL 8.7 MG/DL (8.5-10.1); CARBON DIOXIDE LEVEL 25 MMOL/L (20-31); CHLORIDE LEVEL 110 MMOL/L (98-107); CREATININE FOR GFR 0.83 MG/DL (0.70-1.30); GLOMERULAR FILTRATION RATE > 60.0 (>60); GLUCOSE, FASTING 92 MG/DL (60-100); POTASSIUM SERUM 3.6 MMOL/L (3.5-5.1); SALICYLATE LEVEL < 3.0 MG/DL (<30); SODIUM LEVEL 142 MMOL/L (136-145); TOTAL PROTEIN 6.7 G/DL (5.7-8.2)
[2022-07-27 09:30] LABS: BARBITURATES URINE NEGATIVE (NEGATIVE); BENZODIAZEPINES URINE NEGATIVE (NEGATIVE)
[2022-07-27 09:31] LABS: AMPHETAMINES LEVEL URINE POSITIVE (NEGATIVE); CANNABINOIDS URINE POSITIVE (NEGATIVE); COCAINE METABOLITE URINE NEGATIVE (NEGATIVE); HEMATOCRIT 45.3 % (42.0-52.0); HEMOGLOBIN 15.5 g/dl (13.5-17.5); MEAN CORPUSCULAR HEMOGLOBIN 30.6 pg (27.0-33.0); MEAN CORPUSCULAR HGB CONC 34.2 g/dl (32.0-36.5); MEAN CORPUSCULAR VOLUME 89.5 fl (80.0-96.0); METHADONE URINE NEGATIVE (NEGATIVE); OPIATES URINE NEGATIVE (NEGATIVE); PHENCYCLIDINE URINE NEGATIVE (NEGATIVE); RED BLOOD COUNT 5.06 10^6/uL (4.30-6.10); WHITE BLOOD COUNT 7.2 10^3/uL (4.0-10.0)
[2022-07-27 10:01] LABS: PLATELET COUNT, AUTOMATED 82 10^3/uL (150-450)
[2022-07-27] MEDS ORDERED: IBUPROFEN 400MG TAB PO PRN (13:00)
[2022-07-27] MEDS ORDERED: MOM 30ML SUSPENSION UDC PO PRN (13:00)
[2022-07-27] MEDS ORDERED: ACETAMINOPHEN TAB 650MG DOSE (2X325MG) PO PRN (13:00)
[2022-07-27] MEDS ORDERED: LORazepam 2 MG TAB PO PRN (13:00)
[2022-07-27] MEDS ORDERED: OLANZapine ORAL DISINTEGRATING TAB 5MG PO PRN (13:00)
[2022-07-27] MEDS ORDERED: MAALOX 30 ML SUSP *UDC PO PRN (13:00)
[2022-07-27] MEDS ORDERED: HOME MED LIST COMPLETE! XX SCH (14:10)
[2022-07-27 14:37] VITALS: BP 137/75
[2022-07-27] MEDS: traZODone 50 MG TAB PO PRN (21:34)
[2022-07-27 22:20] VITALS: BP 144/62
[2022-07-28 06:18] VITALS: BP 131/63
[2022-07-28 06:59] VITALS: BP 131/63
[2022-07-28] MEDS: THIAMINE 100 MG TAB PO SCH ×2 (08:34→20:28)
[2022-07-28] MEDS: FOLIC ACID 1MG TAB PO SCH (08:34)
[2022-07-28] MEDS: MULTIVITAMINS/MINERALS THERAP 1 TAB PO SCH (08:34)
[2022-07-28] MEDS: NICOTINE 21MG/24HR 1 EA TRANSDERMAL TD SCH (08:36)
[2022-07-28] MEDS: SERTRALINE HCL 50 MG TAB PO SCH (11:37)
[2022-07-28 15:38] VITALS: BP 140/74
[2022-07-28 18:16] VITALS: BP 150/69
[2022-07-28] MEDS: traZODone 50 MG TAB PO PRN (20:28)
[2022-07-28 22:00] VITALS: BP 122/62
[2022-07-29 06:00] VITALS: BP 118/64
[2022-07-29 06:18] LABS: BASO % 0.5 % (0.0-1.0); EOS # 0.1 10^3/uL (0.0-0.5); EOS % 2.2 % (0.0-3.0); HEMATOCRIT 46.5 % (42.0-52.0); HEMOGLOBIN 15.8 g/dl (13.5-17.5); LYMPH # 2.6 10^3/uL (1.5-5.0); MEAN CORPUSCULAR HEMOGLOBIN 30.9 pg (27.0-33.0); MONO # 0.4 10^3/uL (0.0-0.8); MONO % 6.5 % (2.0-8.0); NEUTROPHILS # 2.5 10^3/uL (1.5-8.5); NEUTROPHILS % 44.6 % (36.0-66.0); RED BLOOD COUNT 5.11 10^6/uL (4.30-6.10); WHITE BLOOD COUNT 5.6 10^3/uL (4.0-10.0)
[2022-07-29 06:23] LABS: PLATELET COUNT, AUTOMATED 77 10^3/uL (150-450)
[2022-07-29] MEDS: THIAMINE 100 MG TAB PO SCH (09:32)
[2022-07-29] MEDS: FOLIC ACID 1MG TAB PO SCH (09:32)
[2022-07-29] MEDS: MULTIVITAMINS/MINERALS THERAP 1 TAB PO SCH (09:32)
[2022-07-29] MEDS: SERTRALINE HCL 50 MG TAB PO SCH (09:32)
[2022-07-29] MEDS: NICOTINE 21MG/24HR 1 EA TRANSDERMAL TD SCH (09:33)
[2022-07-29] MEDS ORDERED: TRAZ-252 PO (13:35)
[2022-07-29] MEDS ORDERED: SERT50TA29 PO (13:35)
[2022-07-29 14:00] VITALS: BP 145/77
[2022-07-29 14:09] VITALS: BP 145/77
[2022-07-29 17:04] VITALS: BP 144/66
[2022-07-29] MEDS: traZODone 50 MG TAB PO PRN (21:03)
[2022-07-30 06:00] VITALS: BP 119/62
[2022-07-30] MEDS: SERTRALINE HCL 50 MG TAB PO SCH (07:42)
[2022-07-30] MEDS: FOLIC ACID 1MG TAB PO SCH (07:43)
[2022-07-30] MEDS: MULTIVITAMINS/MINERALS THERAP 1 TAB PO SCH (07:43)
[2022-07-30] MEDS: NICOTINE 21MG/24HR 1 EA TRANSDERMAL TD SCH (07:43)
== END 2022-07-30 08:32 | disposition home or self-care (01) | DRG 754 ==
LOC: M ED 07:12 → M ED INP 13:05 → M PSY 15:24
PROVIDERS: ADMIT Psychiatry & Neurology Psychiatry; ATTEND Psychiatry & Neurology Psychiatry
DX: F32.A Depression, unspecified (principal); F43.21 Adjustment disorder with depressed mood; F10.20 Alcohol dependence, uncomplicated; F14.10 Cocaine abuse, uncomplicated; F15.10 Other stimulant abuse, uncomplicated; Z63.5 Disruption of family by separation and divorce; D69.6 Thrombocytopenia, unspecified; F17.200 Nicotine dependence, unspecified, uncomplicated

== ENCOUNTER 2022-07-27 07:14 | Emergency (ER) | payer OTHER | END 2022-07-27 07:24 | disposition home or self-care (01) | LOC: M ED 07:14 | DX: Z53.21 Procedure and treatment not carried out due to patient leaving prior to being seen by health care provider (principal) ==

== ENCOUNTER 2022-11-04 05:07 | Emergency (ER) | payer OTHER ==
[~2022-11-04] VITALS: Ht 175.3 cm; Wt 75.0 kg
[~2022-11-04 05:07] MED LIST changes: +SERT50TA29 PO; +TRAZ-252 PO
[2022-11-04] MEDS ORDERED: KETOROLAC 30 MG/ML 1ML VIAL IV ONE (08:55)
[2022-11-04 09:21] LABS: BASO # 0.1 10^3/uL (0.0-0.2); BASO % 0.6 % (0.0-1.0); EOS # 0.1 10^3/uL (0.0-0.5); EOS % 1.4 % (0.0-3.0); HEMATOCRIT 46.1 % (42.0-52.0); HEMOGLOBIN 16.2 g/dl (13.5-17.5); LYMPH # 1.8 10^3/uL (1.5-5.0); LYMPH % 21.2 % (24.0-44.0); MEAN CORPUSCULAR HGB CONC 35.1 g/dl (32.0-36.5); MEAN CORPUSCULAR VOLUME 90.9 fl (80.0-96.0); MONO # 0.6 10^3/uL (0.0-0.8); MONO % 7.7 % (2.0-8.0); NEUTROPHILS # 5.7 10^3/uL (1.5-8.5); RED BLOOD COUNT 5.07 10^6/uL (4.30-6.10); WHITE BLOOD COUNT 8.3 10^3/uL (4.0-10.0)
[2022-11-04 09:26] LABS: PLATELET COUNT, AUTOMATED 78 10^3/uL (150-450)
[2022-11-04 09:33] LABS: ERYTHROCYTE SEDIMENTATION RATE 4 mm/hr (0-15)
[2022-11-04 09:49] LABS: ALBUMIN 3.8 G/DL (3.2-5.2); ALKALINE PHOSPHATASE 63 U/L (46-116); ALT/SGPT 13 U/L (7.0-40); AST/SGOT < 8 U/L (<34); BILIRUBIN,DIRECT 0.2 MG/DL (<0.4); BILIRUBIN,TOTAL 0.4 MG/DL (0.3-1.2); TOTAL PROTEIN 6.6 G/DL (5.7-8.2)
[2022-11-04] MEDS ORDERED: ISOVUE-370 76% 100ML VIAL As Ordered ONE (09:51)
[2022-11-04] MEDS ORDERED: KETO10TAB PO (11:11)
[2022-11-04] MEDS ORDERED: AMOX875T2 PO (11:11)
[2022-11-04 11:25] VITALS: BP 112/96; TEMP 96.1; O2SAT 99
== END 2022-11-04 11:28 | disposition home or self-care (01) ==
LOC: M ED 05:07
DX: K03.81 Cracked tooth (principal); K04.7 Periapical abscess without sinus; F17.200 Nicotine dependence, unspecified, uncomplicated; F12.10 Cannabis abuse, uncomplicated; Z79.899 Other long term (current) drug therapy
CPT/HCPCS: 70487; 80047; 80076; 85025; 85049; 85055; 85652; 86140; 96374; 99284; J1885; Q9967

== ENCOUNTER 2023-02-18 22:33 | Emergency (ER) | payer OTHER ==
[~2023-02-18] VITALS: Ht 175.3 cm; Wt 72.7 kg
[2023-02-18 22:33] VITALS: TEMP 98.6
[~2023-02-18 22:33] MED LIST changes: +AMOX875T2 PO; -DISU1TAB6 PO; +DISU1TAB7 PO; +KETO10TAB PO
[2023-02-19] MEDS ORDERED: AMOX500C PO (00:24)
[2023-02-19] MEDS ORDERED: IBUPROFEN 600MG TAB PO ONE (00:25)
[2023-02-19] MEDS ORDERED: AMOXICILLIN 500 MG CAP PO ONE ×4 (00:25)
[2023-02-19 00:41] VITALS: BP 136/74; O2SAT 98
[2023-02-20] MEDS ORDERED: AMOX875T2 PO (14:49)
== END 2023-02-19 00:40 | disposition home or self-care (01) ==
LOC: M ED 22:33
DX: K09.9 Cyst of oral region, unspecified (principal)

== ENCOUNTER 2023-02-20 10:06 | Emergency (ER) | payer OTHER ==
[~2023-02-20] VITALS: Ht 175.3 cm; Wt 80.2 kg
[~2023-02-20 10:06] MED LIST changes: +AMOX500C PO
[2023-02-20 10:07] VITALS: TEMP 98.1
[2023-02-20] MEDS ORDERED: dexAMETHasone 20MG/5ML VIAL IV ONE (12:20)
[2023-02-20] MEDS ORDERED: AMPICILLIN SOD/SULBACTAM SOD 3 GM in D5W MINI-BAG PLUS 100 ML IV ONE (12:20)
[2023-02-20] MEDS ORDERED: NS 1,000 ML IV ONE (12:20)
[2023-02-20] MEDS ORDERED: ISOVUE-370 76% 100ML VIAL As Ordered ONE (12:41)
[2023-02-20 12:44] LABS: BASO % 0.3 % (0.0-1.0); EOS % 0.3 % (0.0-3.0); HEMATOCRIT 44.7 % (42.0-52.0); HEMOGLOBIN 15.6 g/dl (13.5-17.5); LYMPH # 1.4 10^3/uL (1.5-5.0); LYMPH % 15.3 % (24.0-44.0); MEAN CORPUSCULAR HEMOGLOBIN 32.6 pg (27.0-33.0); MEAN CORPUSCULAR HGB CONC 34.9 g/dl (32.0-36.5); MEAN CORPUSCULAR VOLUME 93.3 fl (80.0-96.0); MONO # 0.8 10^3/uL (0.0-0.8); MONO % 8.9 % (2.0-8.0); NEUTROPHILS # 6.6 10^3/uL (1.5-8.5); NEUTROPHILS % 75.1 % (36.0-66.0); RED BLOOD COUNT 4.79 10^6/uL (4.30-6.10); WHITE BLOOD COUNT 8.8 10^3/uL (4.0-10.0)
[2023-02-20 12:54] LABS: PLATELET COUNT, AUTOMATED 67 10^3/uL (150-450)
[2023-02-20 12:59] LABS: ERYTHROCYTE SEDIMENTATION RATE 13 mm/hr (0-15)
[2023-02-20 13:17] LABS: BLOOD UREA NITROGEN 11 MG/DL (9-23); CALCIUM LEVEL 8.8 MG/DL (8.5-10.1); CARBON DIOXIDE LEVEL 30 MMOL/L (20-31); CHLORIDE LEVEL 103 MMOL/L (98-107); CREATININE FOR GFR 0.88 MG/DL (0.70-1.30); GLOMERULAR FILTRATION RATE > 60.0 (>60); GLUCOSE, FASTING 89 MG/DL (60-100); POTASSIUM SERUM 4.2 MMOL/L (3.5-5.1); SODIUM LEVEL 141 MMOL/L (136-145)
[2023-02-20] MEDS ORDERED: KETOROLAC 30 MG/ML 1ML VIAL IV ONE (13:30)
[2023-02-20] MEDS ORDERED: AMOX875T2 PO (14:49)
[2023-02-20 15:02] VITALS: BP 140/82; O2SAT 99
== END 2023-02-20 15:04 | disposition home or self-care (01) ==
LOC: M ED 10:06
DX: K04.7 Periapical abscess without sinus (principal); K02.9 Dental caries, unspecified; F17.210 Nicotine dependence, cigarettes, uncomplicated
CPT/HCPCS: 70487; 80048; 85025; 85049; 85055; 85652; 86140; 96365; 96366; 96375; 99283; J0295; J1100; J1885; Q9967

== ENCOUNTER 2023-06-04 21:27 | Emergency (ER) | payer OTHER ==
[~2023-06-04] VITALS: Ht 175.3 cm; Wt 84.8 kg
[2023-06-04 23:30] VITALS: BP 140/67; TEMP 97.4; O2SAT 98
[2023-06-05] MEDS ORDERED: IBUP-1022 PO (01:33)
[2023-06-05] MEDS ORDERED: CEPH500C PO (01:33)
[2023-06-05] MEDS: IBUPROFEN 600MG TAB PO ONE (01:40)
[2023-06-05] MEDS: CEPHALEXIN 500 MG CAP PO ONE (01:40)
[2023-06-05] MEDS: BOOSTRIX VACCINE (TETANUS/DIPHTH/ACEL. PERTUSSIS) 0.5ML SYR IM ONE (01:41)
== END 2023-06-05 02:02 | disposition home or self-care (01) ==
LOC: M ED 21:27
DX: S60.042A Contusion of left ring finger without damage to nail, initial encounter (principal); S60.415A Abrasion of left ring finger, initial encounter; V83.7XXA Person on outside of special industrial vehicle injured in nontraffic accident, initial encounter; Y92.9 Unspecified place or not applicable; Y93.9 Activity, unspecified; Y99.0 Civilian activity done for income or pay; F17.200 Nicotine dependence, unspecified, uncomplicated; Z23 Encounter for immunization

== ENCOUNTER 2023-06-17 08:11 | Emergency (ER) | payer OTHER ==
[~2023-06-17] VITALS: Ht 175.3 cm; Wt 97.1 kg
[~2023-06-17 08:11] MED LIST changes: +CEPH500C PO; +IBUP-1022 PO
[2023-06-17 10:57] VITALS: BP 135/90; TEMP 98.9; O2SAT 100
== END 2023-06-17 10:58 | disposition home or self-care (01) ==
LOC: M ED 08:11
DX: J02.0 Streptococcal pharyngitis (principal); F17.200 Nicotine dependence, unspecified, uncomplicated; Z88.0 Allergy status to penicillin

== ENCOUNTER 2023-07-12 13:24 | Emergency (ER) | payer OTHER ==
[~2023-07-12] VITALS: Ht 175.3 cm; Wt 84.3 kg
[2023-07-12 13:28] VITALS: BP 135/75; TEMP 97.5; O2SAT 99
[2023-07-12] MEDS: KETOROLAC 30 MG/ML 1ML VIAL IV ONE (16:48)
[2023-07-12] MEDS ORDERED: ISOVUE-370 76% 100ML VIAL As Ordered ONE (17:00)
[2023-07-12 17:12] LABS: BASO % 0.5 % (0.0-1.0); EOS # 0.1 10^3/uL (0.0-0.5); EOS % 0.8 % (0.0-3.0); HEMATOCRIT 47.7 % (42.0-52.0); HEMOGLOBIN 16.3 g/dl (13.5-17.5); LYMPH % 26.1 % (24.0-44.0); MEAN CORPUSCULAR HEMOGLOBIN 31.4 pg (27.0-33.0); MEAN CORPUSCULAR HGB CONC 34.2 g/dl (32.0-36.5); MEAN CORPUSCULAR VOLUME 91.9 fl (80.0-96.0); MONO # 0.6 10^3/uL (0.0-0.8); MONO % 7.4 % (2.0-8.0); NEUTROPHILS # 4.9 10^3/uL (1.5-8.5); NEUTROPHILS % 65.1 % (36.0-66.0); RED BLOOD COUNT 5.19 10^6/uL (4.30-6.10); WHITE BLOOD COUNT 7.5 10^3/uL (4.0-10.0)
[2023-07-12 17:15] LABS: ERYTHROCYTE SEDIMENTATION RATE 4 mm/hr (0-15)
[2023-07-12 17:38] LABS: PLATELET COUNT, AUTOMATED 94 10^3/uL (150-450)
[2023-07-12] MEDS: cefTRIAXone SOD 1 GM in D5W MINI-BAG PLUS 50 ML IV ONE (18:08)
[2023-07-12] MEDS: methylPREDNISolone 125MG 2ML VIAL IV ONE (18:10)
[2023-07-12] MEDS ORDERED: CLEO300C2 PO (18:14)
== END 2023-07-12 18:33 | disposition home or self-care (01) ==
LOC: M ED 13:24
DX: R22.0 Localized swelling, mass and lump, head (principal); R68.84 Jaw pain; Z79.2 Long term (current) use of antibiotics
CPT/HCPCS: 70491; 80047; 85025; 85049; 85055; 85652; 86140; 96374; 96375; 99283; J0696; J1885; J2919; Q9967

== ENCOUNTER 2023-09-06 02:08 | Emergency (ER) | payer OTHER ==
[~2023-09-06 02:08] MED LIST changes: +CLEO300C2 PO; +FLUO-365 PO; -FLUO20CA22 PO; +ONDA-282 PO; -ONDA4TAB6 PO
[2023-09-06 02:28] LABS: VENOUS BASE EXCESS -2.5 (-2.0-2.0); VENOUS HCO3 22.7 MMOL/L (23.0-27.0); VENOUS O2 SATURATION 88.5 % (60.0-80.0); VENOUS PARTIAL PRESSURE CO2 40.7 mmHg (38.0-50.0); VENOUS PARTIAL PRESSURE O2 57.6 mmHg (30.0-50.0); VENOUS PH 7.364 UNITS (7.330-7.430); VENOUS STANDARD HCO3 22.2 MMOL/L; VENOUS TOTAL CO2 23.9 MMOL/L (24.0-28.0)
[2023-09-06 02:32] LABS: BASO # 0.1 10^3/uL (0.0-0.2); BASO % 0.6 % (0.0-1.0); EOS # 0.1 10^3/uL (0.0-0.5); EOS % 1.7 % (0.0-3.0); HEMATOCRIT 45.4 % (42.0-52.0); HEMOGLOBIN 16.2 g/dl (13.5-17.5); LYMPH # 3.4 10^3/uL (1.5-5.0); LYMPH % 42.5 % (24.0-44.0); MEAN CORPUSCULAR HEMOGLOBIN 32.3 pg (27.0-33.0); MEAN CORPUSCULAR HGB CONC 35.7 g/dl (32.0-36.5); MEAN CORPUSCULAR VOLUME 90.6 fl (80.0-96.0); MONO # 0.6 10^3/uL (0.0-0.8); MONO % 7.6 % (2.0-8.0); NEUTROPHILS # 3.8 10^3/uL (1.5-8.5); NEUTROPHILS % 47.5 % (36.0-66.0); RED BLOOD COUNT 5.01 10^6/uL (4.30-6.10)
[2023-09-06 02:34] LABS: PLATELET COUNT, AUTOMATED 84 10^3/uL (150-450)
[2023-09-06] MEDS: NS 1,000 ML IV ONE (02:54)
[2023-09-06] MEDS ORDERED: LORazepam 2 MG/ML 1ML VIAL As Ordered ONE (03:25)
[2023-09-06] MEDS: MIDAZOLAM INJ 2MG/2ML VIAL IV STA ×3 (03:31→03:59)
[2023-09-06 03:36] LABS: HEMATOCRIT 44.1 % (42.0-52.0); HEMOGLOBIN 15.6 g/dl (13.5-17.5); MEAN CORPUSCULAR HEMOGLOBIN 31.9 pg (27.0-33.0); MEAN CORPUSCULAR HGB CONC 35.4 g/dl (32.0-36.5); MEAN CORPUSCULAR VOLUME 90.2 fl (80.0-96.0); RED BLOOD COUNT 4.89 10^6/uL (4.30-6.10); WHITE BLOOD COUNT 12.8 10^3/uL (4.0-10.0)
[2023-09-06 03:40] LABS: PLATELET COUNT, AUTOMATED 94 10^3/uL (150-450)
[2023-09-06 03:46] LABS: INR 0.9; PARTIAL THROMBOPLASTIN TIME 23.8 SECONDS (24.8-34.2); PROTHROMBIN TIME 11.9 SECONDS (12.5-14.5)
[2023-09-06] MEDS: LIDOCAINE 2% MDV 20ML VIAL SC ONE (03:50)
[2023-09-06 04:01] LABS: LIPASE 55 U/L (12-53)
[2023-09-06 04:02] LABS: CK-MB VALUE MASS 1.1 NG/ML (<3.6)
[2023-09-06 04:04] LABS: ALBUMIN 3.9 G/DL (3.2-5.2); ALKALINE PHOSPHATASE 67 U/L (46-116); ALT/SGPT 26 U/L (7.0-40); AMYLASE 98 U/L (30-118); AST/SGOT 23 U/L (<34); BILIRUBIN,DIRECT 0.1 MG/DL (<0.4); BILIRUBIN,TOTAL 0.3 MG/DL (0.3-1.2); BLOOD UREA NITROGEN 11 MG/DL (9-23); CALCIUM LEVEL 8.2 MG/DL (8.5-10.1); CARBON DIOXIDE LEVEL 26 MMOL/L (20-31); CHLORIDE LEVEL 106 MMOL/L (98-107); CREATININE FOR GFR 0.93 MG/DL (0.70-1.30); GLOMERULAR FILTRATION RATE > 60.0 (>60); GLUCOSE, FASTING 99 MG/DL (60-100); POTASSIUM SERUM 3.4 MMOL/L (3.5-5.1); SODIUM LEVEL 140 MMOL/L (136-145); TOTAL PROTEIN 6.6 G/DL (5.7-8.2)
[2023-09-06 04:19] LABS: CPK CREATINE PHOSPHOKINASE 225 U/L (46-171); ETHYL ALCOHOL (ETHANOL) 0.305 % (0.000-0.010); MB/CK RELATIVE INDEX 0.48 (< OR =4)
[2023-09-06 06:00] VITALS: TEMP 97.9
[2023-09-06 07:47] VITALS: BP 103/56; O2SAT 95
== END 2023-09-06 07:50 | disposition short-term general hospital (02) ==
LOC: EDBD 02:08 → M ED 02:08
DX: S06.6X0A Traumatic subarachnoid hemorrhage without loss of consciousness, initial encounter (principal); S06.360A Traumatic hemorrhage of cerebrum, unspecified, without loss of consciousness, initial encounter; Y92.410 Unspecified street and highway as the place of occurrence of the external cause; Y93.9 Activity, unspecified; Y99.9 Unspecified external cause status; F10.120 Alcohol abuse with intoxication, uncomplicated; R94.31 Abnormal electrocardiogram [ECG] [EKG]
CPT/HCPCS: 70450; 70486; 71045; 72125; 80048; 80076; 82077; 82150; 82550; 82553; 82803; 83605; 83690; 84484; 85025; 85027; 85049; 85055; 85610; 85730; 86850; 86900; 86901; 93005; 93041; 94760; 96374; 99285; J2250

== ENCOUNTER 2023-09-10 18:45 | Emergency (ER) | payer OTHER ==
[~2023-09-10] VITALS: Ht 175.3 cm; Wt 79.6 kg
[2023-09-10] MEDS: METOCLOPRAMIDE INJ 10MG/2ML VIAL IV ONE (20:13)
[2023-09-10] MEDS: dexAMETHasone 20MG/5ML VIAL IV ONE (20:13)
[2023-09-10] MEDS: MORPHINE 4 MG/ML 1ML VIAL IV PRN (20:14)
[2023-09-10 20:24] LABS: BASO % 0.3 % (0.0-1.0); EOS % 0.3 % (0.0-3.0); HEMATOCRIT 45.4 % (42.0-52.0); LYMPH # 1.7 10^3/uL (1.5-5.0); LYMPH % 16.4 % (24.0-44.0); MEAN CORPUSCULAR HEMOGLOBIN 32.1 pg (27.0-33.0); MEAN CORPUSCULAR HGB CONC 35.2 g/dl (32.0-36.5); MEAN CORPUSCULAR VOLUME 91.2 fl (80.0-96.0); MONO # 0.8 10^3/uL (0.0-0.8); MONO % 7.9 % (2.0-8.0); NEUTROPHILS # 7.6 10^3/uL (1.5-8.5); NEUTROPHILS % 74.9 % (36.0-66.0); RED BLOOD COUNT 4.98 10^6/uL (4.30-6.10); WHITE BLOOD COUNT 10.1 10^3/uL (4.0-10.0)
[2023-09-10 20:26] LABS: INR 0.99; PLATELET COUNT, AUTOMATED 95 10^3/uL (150-450); PROTHROMBIN TIME 12.8 SECONDS (12.5-14.5)
[2023-09-10 20:40] LABS: VALPROIC ACID (DEPAKOTE) 57.1 UG/ML (50.0-100.0)
[2023-09-10 20:47] LABS: BLOOD UREA NITROGEN 5 MG/DL (9-23); CALCIUM LEVEL 9.6 MG/DL (8.5-10.1); CARBON DIOXIDE LEVEL 29 MMOL/L (20-31); CHLORIDE LEVEL 106 MMOL/L (98-107); CREATININE FOR GFR 0.87 MG/DL (0.70-1.30); GLOMERULAR FILTRATION RATE > 60.0 (>60); GLUCOSE, FASTING 100 MG/DL (60-100); SODIUM LEVEL 141 MMOL/L (136-145)
[2023-09-10] MEDS: ACETAMINOPHEN *IV* 1,000 MG in IV 1 EA IV ONE (20:52)
[2023-09-10] MEDS: MAG SULF 1GM/100ML (MAG RUN) 1 GM in IV 1 EA IV ONE (20:52)
[2023-09-10] MEDS: NS 1,000 ML IV ONE (20:53)
[2023-09-10 22:00] VITALS: BP 128/76; TEMP 97.3; O2SAT 100
[2023-09-10] MEDS ORDERED: ACET-683 PO (22:16)
== END 2023-09-10 22:28 | disposition home or self-care (01) ==
LOC: M ED 18:45
DX: G44.309 Post-traumatic headache, unspecified, not intractable (principal); F17.200 Nicotine dependence, unspecified, uncomplicated; F10.10 Alcohol abuse, uncomplicated; Z79.1 Long term (current) use of non-steroidal anti-inflammatories (NSAID)
CPT/HCPCS: 70450; 80048; 80164; 85025; 85049; 85055; 85610; 85730; 96365; 96375; 99284; J0131; J1100; J2765; J3475

== ENCOUNTER 2023-11-23 07:43 | Emergency (ER) | payer OTHER ==
[~2023-11-23] VITALS: Ht 175.3 cm; Wt 82.4 kg
[2023-11-23] MEDS: ONDANSETRON 4MG 2ML VIAL IV ONE (09:12)
[2023-11-23] MEDS: PANTOPRAZOLE 40MG VIAL IV ONE (09:31)
[2023-11-23 09:58] LABS: BASO % 0.7 % (0.0-1.0); HEMATOCRIT 45.9 % (42.0-52.0); HEMOGLOBIN 15.8 g/dl (13.5-17.5); LYMPH # 1.2 10^3/uL (1.5-5.0); LYMPH % 29.2 % (24.0-44.0); MEAN CORPUSCULAR HEMOGLOBIN 31.7 pg (27.0-33.0); MEAN CORPUSCULAR HGB CONC 34.4 g/dl (32.0-36.5); MONO # 0.4 10^3/uL (0.0-0.8); NEUTROPHILS # 2.4 10^3/uL (1.5-8.5); NEUTROPHILS % 58.9 % (36.0-66.0); RED BLOOD COUNT 4.99 10^6/uL (4.30-6.10); WHITE BLOOD COUNT 4.1 10^3/uL (4.0-10.0)
[2023-11-23 10:02] LABS: PLATELET COUNT, AUTOMATED 69 10^3/uL (150-450)
[2023-11-23 10:06] LABS: RSV AMPLIFICATION NEGATIVE (NEGATIVE)
[2023-11-23 10:17] LABS: LIPASE 34 U/L (12-53)
[2023-11-23 10:18] LABS: CK-MB VALUE MASS < 1.0 NG/ML (<3.6)
[2023-11-23 10:19] LABS: ALBUMIN 3.9 G/DL (3.2-5.2); ALKALINE PHOSPHATASE 71 U/L (46-116); ALT/SGPT 23 U/L (7.0-40); AST/SGOT 16 U/L (<34); BILIRUBIN,DIRECT 0.2 MG/DL (<0.4); BILIRUBIN,TOTAL 0.6 MG/DL (0.3-1.2); BLOOD UREA NITROGEN 12 MG/DL (9-23); CALCIUM LEVEL 9.2 MG/DL (8.5-10.1); CARBON DIOXIDE LEVEL 32 MMOL/L (20-31); CHLORIDE LEVEL 108 MMOL/L (98-107); CPK CREATINE PHOSPHOKINASE 120 U/L (46-171); CREATININE FOR GFR 0.92 MG/DL (0.70-1.30); GLOMERULAR FILTRATION RATE > 60.0 (>60); GLUCOSE, FASTING 85 MG/DL (60-100); MB/CK RELATIVE INDEX 0.83 (< OR =4); POTASSIUM SERUM 4.2 MMOL/L (3.5-5.1); SODIUM LEVEL 139 MMOL/L (136-145); TOTAL PROTEIN 6.7 G/DL (5.7-8.2)
[2023-11-23] MEDS ORDERED: HOME MED LIST COMPLETE! XX SCH (11:30)
[2023-11-23] MEDS ORDERED: SUCR1SS PO (11:32)
[2023-11-23] MEDS ORDERED: PROT1TAB2 PO (11:32)
[2023-11-23 11:42] VITALS: BP 126/63; TEMP 97.4; O2SAT 100
== END 2023-11-23 11:50 | disposition home or self-care (01) ==
LOC: M ED 07:43
DX: R07.9 Chest pain, unspecified (principal); K92.0 Hematemesis; J45.909 Unspecified asthma, uncomplicated; F17.200 Nicotine dependence, unspecified, uncomplicated; F15.10 Other stimulant abuse, uncomplicated; F10.10 Alcohol abuse, uncomplicated; Z79.899 Other long term (current) drug therapy
CPT/HCPCS: 71046; 80048; 80076; 82550; 82553; 83690; 84484; 85025; 85049; 85055; 85379; 87631; 93005; 96374; 96375; 99284; J2405; J2470

== ENCOUNTER → 2023-11-26 | Outpatient (CLI) | payer OTHER ==
[~2023-11-26] MED LIST changes: +PROT1TAB2 PO; +SUCR1SS PO
[2023-11-26 10:24] LABS: HEMATOCRIT 47.4 % (42.0-52.0); HEMOGLOBIN 16.5 g/dl (13.5-17.5); MEAN CORPUSCULAR HEMOGLOBIN 32.1 pg (27.0-33.0); MEAN CORPUSCULAR HGB CONC 34.8 g/dl (32.0-36.5); MEAN CORPUSCULAR VOLUME 92.2 fl (80.0-96.0); RED BLOOD COUNT 5.14 10^6/uL (4.30-6.10); WHITE BLOOD COUNT 5.2 10^3/uL (4.0-10.0)
[2023-11-26 10:27] LABS: PLATELET COUNT, AUTOMATED 77 10^3/uL (150-450)
[2023-11-26 10:35] LABS: HEMOGLOBIN A1c 4.9 % (4.0-6.0)
[2023-11-26 10:56] LABS: TOTAL 25(OH) VITAMIN D 37.6 NG/ML (20.0-100.0)
[2023-11-26 10:58] LABS: ALBUMIN 4.2 G/DL (3.2-5.2); ALKALINE PHOSPHATASE 77 U/L (46-116); ALT/SGPT 28 U/L (7.0-40); AST/SGOT 17 U/L (<34); BILIRUBIN,TOTAL 0.5 MG/DL (0.3-1.2); BLOOD UREA NITROGEN 9 MG/DL (9-23); CALCIUM LEVEL 9.7 MG/DL (8.5-10.1); CARBON DIOXIDE LEVEL 32 MMOL/L (20-31); CHLORIDE LEVEL 106 MMOL/L (98-107); CHOLESTEROL LEVEL 198 MG/DL (<200); CHOLESTEROL RISK RATIO 2.71 (<5); CREATININE FOR GFR 0.99 MG/DL (0.70-1.30); GLOMERULAR FILTRATION RATE > 60.0 (>60); GLUCOSE, FASTING 92 MG/DL (60-100); LDL CHOLESTEROL 107.4 MG/DL (<100); POTASSIUM SERUM 4.6 MMOL/L (3.5-5.1); SODIUM LEVEL 140 MMOL/L (136-145); TOTAL PROTEIN 7.2 G/DL (5.7-8.2); TRIGLYCERIDES LEVEL 88 MG/DL (<150)
== END ==
LOC: M PLALAB 08:41
PROVIDERS: ATTEND Student in an Organized Health Care Education/Training Program
DX: Z76.89 Persons encountering health services in other specified circumstances (principal)

== ENCOUNTER → 2023-12-01 | Outpatient (CLI) | payer OTHER | LOC: M PLALAB 14:07 | PROVIDERS: ATTEND Student in an Organized Health Care Education/Training Program | DX: Z09 Encounter for follow-up examination after completed treatment for conditions other than malignant neoplasm (principal) ==

== ENCOUNTER 2023-12-08 20:11 | Emergency (ER) | payer OTHER ==
[~2023-12-08] VITALS: Ht 172.7 cm; Wt 82.3 kg
[2023-12-08 20:14] VITALS: TEMP 97.2
[2023-12-08] MEDS: hydrOXYzine 50 MG TAB PO STA (20:36)
[2023-12-08 22:42] LABS: BASO % 0.6 % (0.0-1.0); EOS # 0.1 10^3/uL (0.0-0.5); EOS % 0.7 % (0.0-3.0); HEMATOCRIT 46.4 % (42.0-52.0); HEMOGLOBIN 16.3 g/dl (13.5-17.5); LYMPH # 1.8 10^3/uL (1.5-5.0); LYMPH % 25.3 % (24.0-44.0); MEAN CORPUSCULAR HEMOGLOBIN 32.1 pg (27.0-33.0); MEAN CORPUSCULAR HGB CONC 35.1 g/dl (32.0-36.5); MEAN CORPUSCULAR VOLUME 91.3 fl (80.0-96.0); MONO # 0.4 10^3/uL (0.0-0.8); MONO % 5.9 % (2.0-8.0); NEUTROPHILS # 4.9 10^3/uL (1.5-8.5); NEUTROPHILS % 67.4 % (36.0-66.0); RED BLOOD COUNT 5.08 10^6/uL (4.30-6.10); WHITE BLOOD COUNT 7.2 10^3/uL (4.0-10.0)
[2023-12-08 22:44] LABS: PLATELET COUNT, AUTOMATED 82 10^3/uL (150-450)
[2023-12-08 22:54] LABS: INR 0.98; PARTIAL THROMBOPLASTIN TIME 26.5 SECONDS (24.8-34.2); PROTHROMBIN TIME 12.7 SECONDS (12.5-14.5)
[2023-12-08 23:43] LABS: LIPASE 35 U/L (12-53)
[2023-12-08 23:45] LABS: ALBUMIN 4.2 G/DL (3.2-5.2); ALKALINE PHOSPHATASE 78 U/L (46-116); ALT/SGPT 29 U/L (7.0-40); AST/SGOT 19 U/L (<34); BILIRUBIN,TOTAL 0.4 MG/DL (0.3-1.2); BLOOD UREA NITROGEN 8 MG/DL (9-23); CALCIUM LEVEL 8.7 MG/DL (8.5-10.1); CARBON DIOXIDE LEVEL 27 MMOL/L (20-31); CHLORIDE LEVEL 109 MMOL/L (98-107); CK-MB VALUE MASS < 1.0 NG/ML (<3.6); CREATININE FOR GFR 0.84 MG/DL (0.70-1.30); GLOMERULAR FILTRATION RATE > 60.0 (>60); GLUCOSE, FASTING 80 MG/DL (60-100); POTASSIUM SERUM 3.5 MMOL/L (3.5-5.1); SODIUM LEVEL 143 MMOL/L (136-145); TOTAL PROTEIN 7.1 G/DL (5.7-8.2)
[2023-12-08 23:46] LABS: CPK CREATINE PHOSPHOKINASE 183 U/L (46-171); MB/CK RELATIVE INDEX 0.54 (< OR =4)
[2023-12-08] MEDS ORDERED: ISOVUE-370 76% 100ML VIAL As Ordered ONE (23:49)
[2023-12-09 00:33] VITALS: BP 120/60
[2023-12-09 02:00] VITALS: O2SAT 100
== END 2023-12-09 02:10 | disposition home or self-care (01) ==
LOC: M ED 20:11
DX: F41.9 Anxiety disorder, unspecified (principal); R07.9 Chest pain, unspecified; F12.10 Cannabis abuse, uncomplicated; F10.10 Alcohol abuse, uncomplicated
CPT/HCPCS: 36415; 71275; 74174; 80053; 82550; 82553; 83690; 84484; 85025; 85049; 85055; 85610; 85730; 86850; 86900; 86901; 99284; Q9967

== ENCOUNTER → 2023-12-29 | Outpatient (CLI) | payer OTHER | LOC: M SLEEP HO 12-15 11:08 | PROVIDERS: ATTEND Student in an Organized Health Care Education/Training Program | DX: R06.89 Other abnormalities of breathing (principal) ==

== ENCOUNTER → 2024-02-09 | Outpatient (CLI) | payer OTHER | LOC: M OUTALCOH 07:32 | PROVIDERS: ATTEND Psychiatry & Neurology Psychiatry | DX: F12.10 Cannabis abuse, uncomplicated (principal); Z72.0 Tobacco use ==

== ENCOUNTER 2024-02-24 14:55 | Outpatient (RCR) | payer OTHER | END 2024-02-27 | LOC: M OUTALCOH 14:55 | PROVIDERS: ATTEND Psychiatry & Neurology Psychiatry | DX: F12.10 Cannabis abuse, uncomplicated (principal); Z72.0 Tobacco use ==

== ENCOUNTER → 2024-02-24 | Outpatient (CLI) | payer OTHER | LOC: M RAD 07:19 | PROVIDERS: ATTEND Student in an Organized Health Care Education/Training Program | DX: F10.90 Alcohol use, unspecified, uncomplicated (principal); K92.0 Hematemesis; K76.0 Fatty (change of) liver, not elsewhere classified; R16.0 Hepatomegaly, not elsewhere classified ==

== ENCOUNTER 2024-03-04 14:16 | Emergency (ER) | payer OTHER ==
[~2024-03-04] VITALS: Ht 175.3 cm; Wt 83.0 kg
[2024-03-04] MEDS ORDERED: AMOX875T PO (14:25)
[2024-03-04] MEDS ORDERED: ACET-840 (14:25)
[2024-03-04] MEDS ORDERED: AMOX875T2 PO (15:49)
[2024-03-04] MEDS ORDERED: CIPRHCOTIC AS (15:51)
[2024-03-04 16:24] VITALS: BP 141/81; TEMP 98.7; O2SAT 98
== END 2024-03-04 16:28 | disposition home or self-care (01) ==
LOC: M ED 14:16
DX: H60.92 Unspecified otitis externa, left ear (principal); J02.0 Streptococcal pharyngitis; Z79.1 Long term (current) use of non-steroidal anti-inflammatories (NSAID); Z79.2 Long term (current) use of antibiotics

== ENCOUNTER 2024-11-27 12:15 | Emergency (ER) | payer MEDICAID, OTHER ==
[~2024-11-27] VITALS: Ht 175.3 cm; Wt 84.3 kg
[~2024-11-27 12:15] MED LIST changes: +ACET-840; +AMOX875T PO; +CIPRHCOTIC AS; -IBUP-1022 PO; +IBUP600T42 PO
[2024-11-27 14:26] LABS: BASO # 0.0 10^3/uL (0.0-0.2); BASO % 0.2 % (0.0-1.0); EOS # 0.0 10^3/uL (0.0-0.5); EOS % 0.1 % (0.0-3.0); LYMPH # 2.1 10^3/uL (1.5-5.0); LYMPH % 25.5 % (24.0-44.0); MONO # 0.7 10^3/uL (0.0-0.8); MONO % 8.4 % (2.0-8.0); NEUTROPHILS # 5.5 10^3/uL (1.5-8.5); NEUTROPHILS % 65.7 % (36.0-66.0)
[2024-11-27 14:29] LABS: ERYTHROCYTE SEDIMENTATION RATE 2 mm/hr (0-15); PLATELET COUNT, AUTOMATED 74 10^3/uL (150-450)
[2024-11-27 14:46] LABS: C REACTIVE PROTEIN QUANTITATIV < 0.50 MG/DL (<1.0)
[2024-11-27 14:47] LABS: ALT/SGPT 45 U/L (7.0-40); AST/SGOT 23 U/L (<34); CALCIUM LEVEL 9.2 MG/DL (8.5-10.1); CARBON DIOXIDE LEVEL 30 MMOL/L (20-31); CHLORIDE LEVEL 107 MMOL/L (98-107); CREATININE FOR GFR 0.87 MG/DL (0.70-1.30); GLOMERULAR FILTRATION RATE > 90.0 (>60); POTASSIUM SERUM 3.8 MMOL/L (3.5-5.1); SODIUM LEVEL 145 MMOL/L (136-145)
[2024-11-27] MEDS: ACETAMINOPHEN 500 MG TAB PO ONE (16:05)
[2024-11-27] MEDS ORDERED: ISOVUE-370 76% 100 ML VIAL As Ordered ONE (16:34)
[2024-11-27] MEDS: AMPICILLIN SOD/SULBACTAM SOD 3 GM in DEXTROSE 5% (D5W) MINI-BAG PLU 100 ML IV ONE (17:36)
[2024-11-27] MEDS ORDERED: PRED50TA57 PO (18:28)
[2024-11-27 18:36] VITALS: BP 133/85; TEMP 97.8; O2SAT 100
== END 2024-11-27 18:41 | disposition home or self-care (01) ==
LOC: M ED 12:15
DX: J03.91 Acute recurrent tonsillitis, unspecified (principal); Z87.820 Personal history of traumatic brain injury; Z79.1 Long term (current) use of non-steroidal anti-inflammatories (NSAID); Z79.2 Long term (current) use of antibiotics; Z79.52 Long term (current) use of systemic steroids
CPT/HCPCS: 70491; 80053; 83605; 85025; 85049; 85055; 85652; 86140; 87040; 87077; 87154; 87880; 96374; 96375; 99284; J0295; J1100; Q9967

== ENCOUNTER → 2024-12-26 | Outpatient (CLI) | payer OTHER ==
[~2024-12-26] MED LIST changes: +PRED50TA57 PO
== END ==
LOC: M WUC 09:46
PROVIDERS: ATTEND Nurse Practitioner Family
DX: M54.50 Low back pain, unspecified (principal)

== ENCOUNTER 2025-02-06 07:41 | Emergency (ER) | payer OTHER ==
[~2025-02-06] VITALS: Ht 175.3 cm; Wt 86.4 kg
[2025-02-06] MEDS: KETOROLAC 30 MG/ML 1 ML VIAL IV ONE (10:47)
[2025-02-06] MEDS: CYCLOBENZAPRINE 10 MG TABLET PO ONE (10:47)
[2025-02-06] MEDS: LIDOCAINE 5% PATCH TD ONE (10:47)
[2025-02-06 11:59] LABS: KETONE, URINE AUTO RFX NEGATIVE (NEGATIVE); LEUKOCYTE ESTERASE UR AUTO RFX NEGATIVE (NEGATIVE); MUCUS, URINE RFX SMALL (NEGATIVE); NITRITE, URINE AUTO RFX NEGATIVE (NEGATIVE); RBC, URINE AUTO RFX 0 /HPF (0-3); SQUAM EPITHELIAL CELL UR AURFX 0 /HPF (0-6); WBC, URINE AUTO RFX 1 /HPF (0-3)
[2025-02-06] MEDS ORDERED: HOME MED LIST COMPLETE! XX SCH (13:20)
[2025-02-06] MEDS: MORPHINE 4 MG/ML 1 ML VIAL IV ONE ×2 (16:19→20:24)
[2025-02-06] MEDS: ONDANSETRON 4MG/2ML VIAL IV ONE (16:19)
[2025-02-06] MEDS ORDERED: PRED10TA2 PO (23:06)
[2025-02-06] MEDS ORDERED: KETO-204 PO (23:06)
[2025-02-06 23:09] VITALS: BP 114/65; TEMP 98.1; O2SAT 97
== END 2025-02-06 23:12 | disposition home or self-care (01) ==
LOC: M ED 07:41
DX: M51.26 Other intervertebral disc displacement, lumbar region (principal); F17.210 Nicotine dependence, cigarettes, uncomplicated; F12.10 Cannabis abuse, uncomplicated; F10.10 Alcohol abuse, uncomplicated; Z87.820 Personal history of traumatic brain injury; Z79.2 Long term (current) use of antibiotics; Z79.52 Long term (current) use of systemic steroids
CPT/HCPCS: 72146; 72148; 81001; 96374; 96375; 96376; 99285; J1885; J2405; J2919

== ENCOUNTER → 2025-02-22 | Outpatient (REF) | payer OTHER ==
[~2025-02-22] MED LIST changes: +KETO-204 PO; +PRED10TA2 PO
== END ==
LOC: M SFHCPLAZ 23:29
PROVIDERS: ATTEND Family Medicine
DX: Z53.9 Procedure and treatment not carried out, unspecified reason (principal)